=== PATIENT | male | born 1985 ===

== ENCOUNTER 2017-07-05 12:11 | Emergency (ER) | payer MEDICAID, OTHER ==
[2017-07-05 12:32] VITALS: TEMP 97.8; BMI 27.6
[2017-07-05] MEDS ORDERED: Sodium Chloride 0.9% 1,000 ML IV STA (13:22)
--- NOTE | 2017-07-05 13:24 | ED PDOC ---
Arrival/HPI - General Historian: Patient - History of Present Illness Time/Duration: 4-6 hours Symptom Course: Unchanged Quality: Aching, Pressure Severity Level: 10 <Tuan Leonard - Last Filed: 07/05/17 18:11> <Duncan Conklin - Last Filed: 07/05/17 18:51> - General Chief Complaint: Headache Time Seen by Provider: 07/05/17 13:08 - History of Present Illness Narrative History of Present Illness (Text): 07/05/17 18:11 31 yo M with no significant PMH presents to the ER complaining of 10/10 headache since this morning. Patient recently moved to the from [place] 3 days ago. On June 11 (about 3 weeks ago), patient had sudden headache and sudden onset of right sided weakness in the face, arm, and leg. Patient was seen at a hospital in [place] where he was admitted for several days, and worked up for the headache and weakness, including head CT, MRI of the brain with and without contrast, MRA of the head, and labs. Patient brought his hospital records with him, including reports for all radiologic studies; head CT was normal, brain MRI/MRA was significant only for paranasal sinus disease, and labs were grossly unremarkable. Patient was discharged with a prescription for nortryptaline and PRN indomethacin for headache. Patient reports that until this morning, he had not had headache since discharge on 06/21, though he has had persistent right sided weakness, requiring the use of a walker. Patient currently describes the headache and aching and throbbing, diffuse, but worse on the right side, with associated right sided facial pain, worsens with bright lights. He denies confusion, chest pain, shortness of breath, vision changes. No acute worsening in his strength. 07/05/17 18:21 (Tuan Leonard) Past Medical History - Provider Review Nursing Documentation Reviewed: Yes - Travel History Have you recently traveled outside [place] w/in the past 3 mons?: Yes If Yes, travel location?: [place] - Past History Past History: No Previous - Infectious Disease Hx of Infectious Diseases: None - Cardiac Hx ID: Yes - Psychiatric Hx Substance Use: No - Anesthesia Hx Anesthesia: No Hx Anesthesia Reactions: No Hx Malignant Hyperthermia: No <Tuan Leonard - Last Filed: 07/05/17 18:11> Family/Social History - Physician Review Nursing Documentation Reviewed: Yes Family/Social History: Other Smoking Status: Never Smoked Hx Alcohol Use: No Hx Substance Use: No <Jona Leonardram - Last Filed: 07/05/17 18:11> <Ranasinghe,Duncan - Last Filed: 07/05/17 18:51> Narrative Family History (Free Text): 07/05/17 18:22 Migraines in mother (Tuan Leonard) Allergies/Home Meds <AmineVadimkarram - Last Filed: 07/05/17 18:11> <Ranasinghe,Duncan - Last Filed: 07/05/17 18:51> Allergies/Adverse Reactions: Allergies No Known Allergies Allergy (Verified 07/05/17 13:20) Review of Systems - Review of Systems Constitutional: Normal Eyes: Normal ENT: Normal Respiratory: Normal Cardiovascular: Normal Gastrointestinal: Normal Genitourinary Male: Normal Musculoskeletal: Normal Skin: Normal Neurological: Headache, Focal Weakness, Facial Droop. absent: Dizziness, Speech Changes Endocrine: Normal Hemo/Lymphatic: Normal Psychiatric: Normal <AmineJonaram - Last Filed: 07/05/17 18:11> Physical Exam Vital Signs Reviewed: Yes Temperature: Afebrile Blood Pressure: Hypertensive Pulse: Regular Respiratory Rate: Normal Appearance: Positive for: Well-Appearing, Non-Toxic, Comfortable Pain Distress: Mild Mental Status: Positive for: Alert and Oriented X 3 - Systems Exam Head: Present: Atraumatic, Normocephalic Pupils: Present: PERRL, Other (Right ptosis, intermittent) Extroacular Muscles: Present: EOMI Conjunctiva: Present: Normal Mouth: Present: Moist Mucous Membranes Neck: Present: Normal Range of Motion. No: Meningeal Signs Respiratory/Chest: Present: Clear to Auscultation, Good Air Exchange. No: Respiratory Distress, Accessory Muscle Use Cardiovascular: Present: Regular Rate and Rhythm, Normal S1, S2 Abdomen: No: Tenderness, Distention Upper Extremity: Present: Normal Inspection. No: Cyanosis, Edema Lower Extremity: Present: Normal Inspection. No: Edema, CALF TENDERNESS Neurological: Present: GCS=15, Speech Normal, Normal Cerebellar Funct, Norm Deep Tendon Reflexes. No: CN II-XII Intact (Right sided ptosis and decreased excusion of right mouth), Motor Func Grossly Intact (4/5 strength in RUE and RLE ) Skin: Present: Warm, Dry, Normal Color Psychiatric: Present: Alert, Oriented x 3, Normal Insight, Normal Concentration <Tuan Leonard - Last Filed: 07/05/17 18:11> Vital Signs Temp Pulse Resp BP Pulse Ox 07/05/17 17:38 71 18 148/79 98 07/05/17 15:00 76 18 151/86 H 98 07/05/17 13:36 75 18 155/92 H 98 07/05/17 12:26 97.8 F 80 20 159/101 H 99 Medical Decision Making <Tuan Leonard - Last Filed: 07/05/17 18:11> <Duncan Conklin - Last Filed: 07/05/17 18:51> ED Course and Treatment: 07/05/17 18:25 Impression: Headache, right sided weakness Differential Diagnosis included but are not limited to: Migraine, cluster headache, CVA, tension headache Plan: -- Labs -- EKG -- Head CT -- Imitrex -- 1L NS IVF -- Reassess and disposition Prior Visits: None Progress Notes: -- Patient reports mild improvement in headache, no change in neurologic symptoms, now or since prior hospitalization -- Discussed case with Dr. Olivas who recommends no further imaging, treat the headache with IV Magnesium, IV Decadron, and 500mg Depakote; recommends outpatient follow up if headache improves, vs inpatient admission if no improvement -- Ordered IV Mag, IV decadron, and Depakote per Dr. Olivas's recommendation -- Patient reports headache mostly improved; agreeable to be discharged to home for further outpatient workup -- Discussed with patient importance of follow up with primary care provider, suggested [facility] community clinic; follow up with neurologist for continued workup -- Return to the ER for new or worsening concerns (HoracioTuan) 07/05/17 18:25 31 year old male presents to the emergency department for headache. In agreement with resident's note and further details included in the HPI. Came up with treatment and plan of care collaboratively. 07/05/17 18:25 CT of head reviewed by radiologist, shows: FINDINGS: HEMORRHAGE: No intracranial hemorrhage. BRAIN: No mass effect or edema. No atrophy or chronic microvascular ischemic changes. VENTRICLES: Unremarkable. No hydrocephalus. CALVARIUM: Unremarkable. PARANASAL SINUSES: Unremarkable as visualized. No significant inflammatory changes. MASTOID AIR CELLS: Unremarkable as visualized. No inflammatory changes. OTHER FINDINGS: None. IMPRESSION: No acute findings (Ranasinghe,Duncan) - Lab Interpretations Lab Results: 07/05/17 14:05 07/05/17 14:05 Lab Results 07/05/17 14:05: Sodium 141, Chloride 105, Potassium 4.1, Carbon Dioxide 26, Anion Gap 14, BUN 14, Creatinine 0.8, Est GFR ( Amer) > 60, Est GFR (Non- Af Amer) > 60, Random Glucose 79, Calcium 9.5, Total Bilirubin 0.3, AST 35, ALT 83 H, Alkaline Phosphatase 62, Total Protein 7.7, Albumin 4.5, Globulin 3.2, Albumin/Globulin Ratio 1.4 07/05/17 14:05: pO2 57 H, VBG pH 7.32, VBG pCO2 56.0, VBG HCO3 28.9 H, VBG Total CO2 30.6 H, VBG O2 Sat (Calc) 93.1 H, VBG Base Excess 1.6, VBG Potassium 4.1, Sodium 138.0, Chloride 105.0, Glucose 77, Lactate 0.9, FiO2 21.0, Venous Blood Potassium 4.1 07/05/17 14:05: PT 11.6, INR 1.02, APTT 29.1 07/05/17 14:05: WBC 7.0, RBC 4.17, Hgb 12.5 L, Hct 37.1 L, MCV 89.0, MCH 30.0, MCHC 33.7, RDW 13.1, Plt Count 314, MPV 8.7, Gran % 61.6, Lymph % (Auto) 29.4, [place] % (Auto) 7.0 H, Eos % (Auto) 1.9, Baso % (Auto) 0.1, Gran # 4.30, Lymph # ( Auto) 2.1, [place] # (Auto) 0.5, Eos # (Auto) 0.1, Baso # (Auto) 0.01, ESR 44 H - RAD Interpretation Radiology Orders: 07/05/17 13:22 HEAD W/O CONTRAST [CT] Stat - Medication Orders Current Medication Orders: Discontinued Medications Dexamethasone (Decadron Inj) 10 mg IVP STAT STA Stop: 07/05/17 16:27 Last Admin: 07/05/17 16:54 Dose: 10 mg IVP Administration Document 07/05/17 16:54 RD (Rec: 07/05/17 16:54 RD [id number]) Charges for Administration # of IVP Administrations 1 Divalproex Sodium (Depakote Er(Once Daily)) 500 mg PO STAT STA PRN Reason: Protocol Stop: 07/05/17 16:27 Last Admin: 07/05/17 16:54 Dose: 500 mg Sodium Chloride (Sodium Chloride 0.9%) 1,000 mls @ 999 mls/hr IV .Q1H1M STA Stop: 07/05/17 14:22 Last Admin: 07/05/17 14:04 Dose: 999 mls/hr eMAR Start Stop Document 07/05/17 14:04 SF (Rec: 07/05/17 14:05 SF [id number]) Intravenous Solution Start Date 07/05/17 Start Time 14:05 End Date 07/05/17 End time 15:06 Total Infusion Time 61 Magnesium Sulfate 2 gm/ Sodium (Chloride) 104 mls @ 102 mls/hr IVPB ONCE ONE Stop: 07/05/17 17:27 Last Admin: 07/05/17 16:55 Dose: 102 mls/hr eMAR Start Stop Document 07/05/17 16:55 RD (Rec: 07/05/17 16:55 RD [id number]) Intravenous Solution Start Date 07/05/17 Start Time 16:55 End Date 07/05/17 End time 17:57 Total Infusion Time 62 Sumatriptan Succinate (Imitrex Inj) 6 mg SC STAT STA Stop: 07/05/17 13:23 Last Admin: 07/05/17 14:04 Dose: 6 mg Subcutaneous Administrations Document 07/05/17 14:04 SF (Rec: 07/05/17 14:04 SF [id number]) Injection Site MAR Injection Site Right Arm Charges for Administration # of Subcutaneous Administrations 1 <Tuan Leonard - Last Filed: 07/05/17 18:11> - PA / HOSPICE EDUCATOR / Resident Statement / has reviewed & agrees with the documentation as recorded. / has examined the patient and agrees with the treatment plan. - Scribe Statement The provider has reviewed the documentation as recorded by the Scribe <Duncan Conklin - Last Filed: 07/05/17 18:51> - Scribe Statement Shiva Isaac. All medical record entries made by the Scribe were at my direction and personally dictated by me. I have reviewed the chart and agree that the record accurately reflects my personal performance of the history, physical exam, medical decision making, and the department course for this patient. I have also personally directed, reviewed, and agree with the discharge instructions and disposition. (Duncan Conklin) Disposition/Present on Arrival - Present on Arrival Any Indicators Present on Arrival: No History of DVT/PE: No History of Uncontrolled Diabetes: No Urinary Catheter: No History of Decub. Ulcer: No History Surgical Site Infection Following: None - Disposition Have Diagnosis and Disposition been Completed?: Yes Disposition Time: 18:36 Patient Plan: Discharge <Tuan Leonard - Last Filed: 07/05/17 18:11> <Duncan Conklin - Last Filed: 07/05/17 18:51> - Disposition Diagnosis: Headache Disposition: HOME/ ROUTINE Patient Problems: Current Active Problems Problem Status Onset Headache Acute Condition: FAIR Discharge Instructions (ExitCare): Migraine Headache (DC), Headache, Adult (DC) Print Language: JAMAICAN Additional Instructions: -- Follow up with a primary care doctor of your choice, including the [facility] community care clinic within one week -- Follow up with neurologist of your choice, or Dr. Olivas, within one week -- Continue all medications as previously prescribed -- You had elevated blood pressure readings today; you need to follow up with a primary care doctor to recheck in one week, and start treatment for high blood pressure if it remains elevated -- Return to the ER for any new or worsening concerns Referrals: Rich Olivas MD [Staff Provider] - Follow up with primary [facility] at [facility] [Outside] - Follow up with primary Forms: [employer] (Nauruan)
[2017-07-05 13:36] VITALS: RESP 18; O2SAT 98
[2017-07-05 14:11] LABS: BASO # 0.01 K/mm3 (0.0-2.0); BASO % 0.1 % (0.0-3.0); EOS # 0.1 (0.0-0.7); EOS % 1.9 % (1.5-5.0); GRAN # 4.3 (1.4-6.5); GRAN % 61.6 % (50.0-68.0); HEMOGLOBIN 12.5 g/dL (14.0-18.0); LYMPH # 2.1 (1.2-3.4); LYMPH % 29.4 % (22.0-35.0); MEAN CORPUSCULAR HGB CONC 33.7 g/dl (31.0-37.0); MEAN PLATELET VOLUME 8.7 fl (7.0-11.0); MONO # 0.5 (0.1-0.6); RBC 4.17 10^6/uL (3.5-6.1); RED CELL DISTRIBUTION WIDTH 13.1 % (11.5-14.5); VENOUS BLOOD GAS BASE EXCESS 1.6 mmol/L (0.0-2.0); VENOUS BLOOD GAS PO2 57 mm/Hg (30-55); VENOUS BLOOD PH 7.32 (7.32-7.43)
[2017-07-05 14:20] LABS: ALB/GLOB RATIO 1.4 (1.1-1.8); ALBUMIN 4.5 g/dL (3.0-4.8); ALT/SGPT 83 U/L (7-56); AST/SGOT 35 U/L (17-59); BLOOD UREA NITROGEN 14 mg/dL (7-21); CALCIUM 9.5 mg/dL (8.4-10.5); GFR AFRICAN-AMERICAN > 60; GFR NON-AFRICAN AMERICAN > 60
[2017-07-05 14:24] LABS: INR 1.02 (0.93-1.08); PARTIAL THROMBOPLASTIN TIME 29.1 Seconds (25.1-36.5); PROTHROMBIN TIME 11.6 SECONDS (9.4-12.5)
--- NOTE | 2017-07-05 14:42 | CT ---
PROCEDURE: CT HEAD WITHOUT CONTRAST. HISTORY: R sided Headache; 3wks right sided weakness COMPARISON: None available. TECHNIQUE: Axial computed tomography images were obtained through the head/brain without intravenous contrast. Radiation dose: Total exam DLP = 977 mGy-cm. This CT exam was performed using one or more of the following dose reduction techniques: Automated exposure control, adjustment of the mA and/or kV according to patient size, and/or use of iterative reconstruction technique. FINDINGS: HEMORRHAGE: No intracranial hemorrhage. BRAIN: No mass effect or edema. No atrophy or chronic microvascular ischemic changes. VENTRICLES: Unremarkable. No hydrocephalus. CALVARIUM: Unremarkable. PARANASAL SINUSES: Unremarkable as visualized. No significant inflammatory changes. MASTOID AIR CELLS: Unremarkable as visualized. No inflammatory changes. OTHER FINDINGS: None. IMPRESSION: No acute findings
[2017-07-05] MEDS ORDERED: Divalproex 500 mg ER (ONCE DAILY formulation) PO STA (16:26)
[2017-07-05] MEDS ORDERED: Magnesium Sulfate 2 GM in Sodium Chloride 0.9% 100 ML IVPB ONE (16:26)
--- NOTE | 2017-07-05 18:38 | CARD ---
APPROVED REPORT EKG Measurement Heart [id number] <Conclusion> Normal sinus rhythm with sinus arrhythmia Moderate voltage criteria for LVH, may be normal variant Borderline ECG
[2017-07-05 18:54] VITALS: BP 145/74; PULSE 69
== END 2017-07-05 19:01 | disposition home or self-care (01) ==
LOC: ED 12:11
DX: R51 Headache (principal); I25.2 Old myocardial infarction
CPT/HCPCS: 70450; 80053; 82803; 85025; 85610; 85651; 85730; 93005; 96361; 96365; 96372; 96375; 99285; J1100; J3030; J3475; J7040

== ENCOUNTER 2017-07-15 17:33 | Emergency (ER) | payer MEDICAID, OTHER ==
[2017-07-15 17:40] VITALS: BMI 43.3
[2017-07-15 18:11] VITALS: TEMP 98.6
[2017-07-15] MEDS ORDERED: DiphenhydrAMINE 50 mg/ml Inj IVP STA (18:43)
--- NOTE | 2017-07-15 18:47 | ED PDOC ---
Arrival/HPI - General Chief Complaint: Headache Time Seen by Provider: 07/15/17 18:20 Historian: Patient - History of Present Illness Narrative History of Present Illness (Text): 07/15/17 18:38 A 31 year old male, whose past medical history includes hypertension, non- compliant with medications, and LA, who presents to the emergency department complaining of headache today. Patient reports he has been experiencing headaches every other day. Patient states on 06/14/2017 he was seen in [place] for similar complaints and was told headaches were either secondary to migraines, CVA, or uncontrolled hypertension. Patient also reports shortness of breath for 1 hour, but denies any chest pain, or any other complaints at this time. Also, patient reports he was prescribed Nortriptyline 10 mg and Indomethacin 25 mg from [place]. No PMD Symptom Onset: Gradual Symptom Course: Unchanged Activities at Onset: Light Context: Home Past Medical History - Provider Review Nursing Documentation Reviewed: Yes - Past History Past History: No Previous - Infectious Disease Hx of Infectious Diseases: None - Cardiac Hx LA: Yes Hx Hypertension: Yes - Psychiatric Hx Substance Use: No - Anesthesia Hx Anesthesia: No Hx Anesthesia Reactions: No Hx Malignant Hyperthermia: No Family/Social History - Physician Review Nursing Documentation Reviewed: Yes Family/Social History: No Known Family HX Smoking Status: Never Smoked Hx Alcohol Use: No Hx Substance Use: No Allergies/Home Meds Allergies/Adverse Reactions: Allergies No Known Allergies Allergy (Verified 07/05/17 13:20) Review of Systems - Physician Review All systems were reviewed & negative as marked: Yes - Review of Systems Respiratory: SOB Cardiovascular: absent: Chest Pain Genitourinary Male: absent: Dysuria, Frequency, Hematuria, Urinary Output Changes Musculoskeletal: absent: Back Pain, Neck Pain Neurological: Headache. absent: Dizziness Physical Exam Vital Signs Reviewed: Yes Vital Signs Temp Pulse Resp BP Pulse Ox 07/15/17 21:52 73 16 97/65 L 99 07/15/17 17:34 98.6 F 80 18 159/85 H 100 Temperature: Afebrile Blood Pressure: Hypertensive Pulse: Regular Respiratory Rate: Normal Appearance: Positive for: Well-Appearing Pain Distress: None Mental Status: Positive for: Alert and Oriented X 3 - Systems Exam Head: Present: Atraumatic, Normocephalic Pupils: Present: PERRL Extroacular Muscles: Present: Other (right eye ptosis) Conjunctiva: Present: Normal Mouth: Present: Moist Mucous Membranes. No: Normal Tounge (tongue deviated to right) Neck: Present: Normal Range of Motion Respiratory/Chest: Present: Clear to Auscultation, Good Air Exchange. No: Respiratory Distress, Accessory Muscle Use Cardiovascular: Present: Regular Rate and Rhythm, Normal S1, S2. No: Murmurs Abdomen: No: Tenderness, Distention, Peritoneal Signs Upper Extremity: Present: Normal Inspection. No: Cyanosis, Edema Lower Extremity: Present: Edema (+2 pitting edema), Swelling Neurological: Present: Motor Func Grossly Intact (4/5 strength arm and leg) Skin: Present: Warm, Dry, Normal Color. No: Rashes Psychiatric: Present: Alert, Oriented x 3, Normal Insight, Normal Concentration Medical Decision Making ED Course and Treatment: 07/15/17 18:42 Impression: 31 year old male with headache. Differential Diagnosis included but are not limited to: Migraine vs. CVA vs. Uncontrolled Hypertension Plan: -- EKG -- Chest X-ray -- Labs -- Tylenol -- Benadryl -- Reglan -- Reassess and disposition Prior Visits: Patient was last seen here in the emergency department on 2017 for headache. Patient's headache was treated with IV Magnesium, IV Decadron , and 500mg Depakote as recommended by consult Dr. Olivas. Patient was discharged home. Progress Notes: 07/15/17 22:00 Patient states pain is now from 10/10 to 6/10. Ordered for patient Magnesium, Depakote, and steroids. 07/15/17 23:10 CT Head Vrad reading as: streak artifact limits evaluation of the skull base. No evidence of acute intracranial hemorrhage Patient only received Steroids at this time and already had symptoms improve to a 3/10. He feels better and wants to go home. He denies any weakness or lightheadedness. No new neurological symptoms. Patient's last ED visit he presented with the same symptoms and improved as he did this visit. He will follow up with the outpatient clinic and Dr. Olivas, Neurologist. I explained to him and his family the importance of follow up. He will continue nortriptyline and indomethacin as prescribed for his headaches. - Lab Interpretations Lab Results: 07/15/17 19:09 07/15/17 19:09 Lab Results 07/15/17 22:50: Blood Type Confirm A POSITIVE 07/15/17 20:40: Blood Type A POSITIVE, Antibody Screen Negative, BBK History Checked No verified bt 07/15/17 19:09: Hemoglobin A1c 5.8 07/15/17 19:09: Sodium 143, Potassium 4.2, Chloride 105, Carbon Dioxide 29, Anion Gap 14, BUN 11, Creatinine 0.9, Est GFR ( Amer) > 60, Est GFR (Non- Af Amer) > 60, Random Glucose 103, Calcium 8.8, Total Bilirubin 0.4, AST 47, ALT 77 H, Alkaline Phosphatase 48, Troponin I < 0.01, Total Protein 7.2, Albumin 4.1, Globulin 3.2, Albumin/Globulin Ratio 1.3, Triglycerides 309 H, Cholesterol 193, LDL Cholesterol Direct 103, HDL Cholesterol 32 07/15/17 19:09: PT 11.0, INR 0.97, APTT 28.5 07/15/17 19:09: WBC 7.0, RBC 4.11, Hgb 12.4 L, Hct 37.2 L, MCV 90.5, MCH 30.2, MCHC 33.3, RDW 13.1, Plt Count 291, MPV 8.8, Gran % 59.8, Lymph % (Auto) 29.4, [place] % (Auto) 8.7 H, Eos % (Auto) 2.0, Baso % (Auto) 0.1, Gran # 4.19, Lymph # ( Auto) 2.1, [place] # (Auto) 0.6, Eos # (Auto) 0.1, Baso # (Auto) 0.01 I have reviewed the lab results: Yes - RAD Interpretation Radiology Orders: 07/15/17 18:42 CHEST PORTABLE [RAD] Stat 07/15/17 18:54 HEAD W/O CONTRAST [CT] Stat Black [employer] White Printer Operator: Radiologist - Medication Orders Current Medication Orders: Discontinued Medications Acetaminophen (Tylenol 325mg Tab) 650 mg PO STAT STA Stop: 07/15/17 18:44 Last Admin: 07/15/17 19:35 Dose: 650 mg MAR Pain/Vitals Document 07/15/17 19:35 EQ (Rec: 07/15/17 19:35 EQ [id number]) Pain Reassessment Is This A Pain ReAssessment? No Sleep Is patient sleeping during reassessment? No Presence of Pain Presence of Pain Yes Dexamethasone (Decadron Inj) 8 mg IVP STAT STA Stop: 07/15/17 21:11 Last Admin: 07/15/17 22:00 Dose: 8 mg IVP Administration Document 07/15/17 22:00 MS (Rec: 07/15/17 22:08 MS [id number]) Charges for Administration # of IVP Administrations 1 Diphenhydramine HCl (Benadryl) 25 mg IVP STAT STA Stop: 07/15/17 18:44 Last Admin: 07/15/17 19:36 Dose: 25 mg IVP Administration Document 07/15/17 19:36 EQ (Rec: 07/15/17 19:36 EQ [id number]) Charges for Administration # of IVP Administrations 1 Magnesium Sulfate/Dextrose (Magnesium Sulfate 1 Gm/100 Ml D5w) 1 gm in 100 mls @ 100 mls/hr IVPB ONCE STA Stop: 07/15/17 22:09 Last Admin: 07/15/17 22:06 Dose: Valproate Sodium 500 mg/ (Sodium Chloride) 105 mls @ 150 mls/hr IVPB STAT STA Stop: 07/15/17 22:13 Last Admin: 07/15/17 22:06 Dose: Metoclopramide HCl (Reglan) 10 mg IVP STAT STA Stop: 07/15/17 18:44 Last Admin: 07/15/17 19:35 Dose: 10 mg IVP Administration Document 07/15/17 19:35 EQ (Rec: 07/15/17 19:35 EQ [id number]) Charges for Administration # of IVP Administrations 1 - Scribe Statement The provider has reviewed the documentation as recorded by the Ana Preciado Provider Scribe Attestation: All medical record entries made by the Scribyeyo were at my direction and personally dictated by me. I have reviewed the chart and agree that the record accurately reflects my personal performance of the history, physical exam, medical decision making, and the department course for this patient. I have also personally directed, reviewed, and agree with the discharge instructions and disposition. Disposition/Present on Arrival - Present on Arrival Any Indicators Present on Arrival: No History of DVT/PE: No History of Uncontrolled Diabetes: No Urinary Catheter: No History of Decub. Ulcer: No History Surgical Site Infection Following: None - Disposition Have Diagnosis and Disposition been Completed?: Yes Diagnosis: Headache Disposition: HOME/ ROUTINE Disposition Time: 23:13 Patient Plan: Discharge Condition: IMPROVED Discharge Instructions (ExitCare): Migraine Headache (DC) Additional Instructions: Mr Lua, thank you for letting us take care of you today. Your provider was Dr. Irwin. You were treated for Headache. The emergency medical care you received today was directed at your acute symptoms. If you were prescribed any medication , please fill it and take as directed. It may take several days for your symptoms to resolve. Return to the Emergency Department if your symptoms worsen , do not improve, or if you have any other problems. Please contact your doctor or call one of the physicians/clinics you have been referred to that are listed on the Patient Visit Information form that is included in your discharge packet. Bring any paperwork you were given at discharge with you along with any medications you are taking to your follow up visit. Our treatment cannot replace ongoing medical care by a primary care provider (PCP) outside of the emergency department. Thank you for allowing the Care [facility] team to be part of your care today. If you had an X-Ray or CT scan: A Radiologist will review the ED reading if any change in treatment is needed we will contact you. If you had a blood, urine, or wound culture: It will take several days for the results, if any change in treatment is needed we will contact you. If you had an STI test: It will take 48 hours for the results. Please call after 1 week if you have not heard back. Referrals: [facility] at [facility] [Outside] - Follow up with primary Rich Olivas MD [Staff Provider] - Follow up with primary Forms: [employer] (Peruvian), [employer] (Kiswahili), WORK NOTE
[2017-07-15 19:17] LABS: BASO # 0.01 K/mm3 (0.0-2.0); BASO % 0.1 % (0.0-3.0); EOS # 0.1 (0.0-0.7); GRAN # 4.19 (1.4-6.5); GRAN % 59.8 % (50.0-68.0); HEMOGLOBIN 12.4 g/dL (14.0-18.0); LYMPH # 2.1 (1.2-3.4); LYMPH % 29.4 % (22.0-35.0); MEAN CELL VOLUME 90.5 fl (80.0-105.0); MEAN CORPUSCULAR HEMOGLOBIN 30.2 pg (25.0-35.0); MEAN CORPUSCULAR HGB CONC 33.3 g/dl (31.0-37.0); MEAN PLATELET VOLUME 8.8 fl (7.0-11.0); MONO # 0.6 (0.1-0.6); MONO % 8.7 % (1.0-6.0); RBC 4.11 10^6/uL (3.5-6.1); RED CELL DISTRIBUTION WIDTH 13.1 % (11.5-14.5)
[2017-07-15 19:26] LABS: INR 0.97 (0.93-1.08); PARTIAL THROMBOPLASTIN TIME 28.5 Seconds (25.1-36.5)
[2017-07-15 19:47] LABS: ALB/GLOB RATIO 1.3 (1.1-1.8); ALBUMIN 4.1 g/dL (3.0-4.8); ALT/SGPT 77 U/L (7-56); AST/SGOT 47 U/L (17-59); BLOOD UREA NITROGEN 11 mg/dL (7-21); CALCIUM 8.8 mg/dL (8.4-10.5); GFR AFRICAN-AMERICAN > 60; GFR NON-AFRICAN AMERICAN > 60; HDL CHOLESTEROL 32 mg/dL (29-60)
[2017-07-15 19:53] LABS: LDL CHOLESTEROL 103 mg/dL (0-129)
[2017-07-15 19:56] LABS: TROPONIN I < 0.01 ng/mL
[2017-07-15] MEDS ORDERED: Dexamethasone 4 mg/1 ml IVP STA (21:10)
[2017-07-15] MEDS ORDERED: Magnesium Sulfate 1 gm in D5W 1 GM/100 ML BAG IVPB STA (21:10)
[2017-07-15] MEDS ORDERED: Valproate 500 MG in Sodium Chloride 0.9% 100 ML IVPB STA (21:32)
[2017-07-15 22:57] VITALS: BP 97/65; PULSE 73; RESP 16; O2SAT 99
--- NOTE | 2017-07-16 08:12 | RAD ---
HISTORY: Code Stroke COMPARISON: No prior. FINDINGS: LUNGS: Poor inspiration with low lung volumes crowded bronchovascular markings and mild bibasilar atelectasis. PLEURA: No significant pleural effusion identified, no pneumothorax apparent. CARDIOVASCULAR: Normal. OSSEOUS STRUCTURES: No significant abnormalities. VISUALIZED UPPER ABDOMEN: Normal. OTHER FINDINGS: None. IMPRESSION: No active disease.
--- NOTE | 2017-07-16 08:25 | CT ---
PROCEDURE: CT scan abdomen pelvis dated 07/17/2017 HISTORY: Abdominal pain COMPARISON: No prior studies available for comparison TECHNIQUE: Contiguous axial images of the abdomen and pelvis performed without oral or intravenous contrast material. Additional 2D sagittal and coronal reformats generated. Radiation dose: Total exam DLP = This CT exam was performed using one or more of the following dose reduction techniques: Automated exposure control, adjustment of the mA and/or kV according to patient size, and/or use of iterative reconstruction technique. FINDINGS: LOWER THORAX: Lung bases clear. No infiltrate effusion or basilar pneumothorax. LIVER: Liver exhibits relatively normal size measuring bili 17 cm in CC dimension. No obvious hepatic masses or collections seen on this noncontrast study. GALLBLADDER AND BILE DUCTS: Gallbladder is appears incompletely distended possibly due to recent nonfasting state. No evidence of intraluminal gallbladder calculi PANCREAS: The pancreas appears slightly fatty replaced. No obvious pancreatic masses collections or calcification. No significant pancreatic ductal dilatation. SPLEEN: Spleen exhibits normal size and attenuation pattern without mass collection or calcification. ADRENALS: No adrenal lesions are identified KIDNEYS AND URETERS: Kidneys demonstrate relatively symmetric size. No evidence of obstructing nephrolithiasis. Large partially exophytic cyst arising from the upper pole right kidney measuring approximately 5.9 x 5.7 cm. BLADDER: Urinary bladder is incompletely distended which in part accounts for thick-walled appearance. Muscular hypertrophy may contribute. Other intrinsic - invasive wall lesion not excluded REPRODUCTIVE: Prostate gland measures approximately 3.8 cm in transverse dimension. APPENDIX: Normal-appearing appendix best seen on coronal sequence image number [id number]. BOWEL: Evaluation of the bowel is limited due to the lack of oral contrast material. . Stomach is incompletely distended which in part accounts for thick-walled appearance. The visualized loops of small bowel exhibit normal contour and caliber. No evidence acute mechanical small bowel obstruction. . There are scattered colonic diverticula however no radiographic evidence of acute diverticulitis. . There appears to be some mild submucosal fat deposition within the cecum and; rule out chronic sequela of inflammation. Moderate amount of stool is seen within the rectum and distal sigmoid consistent with mild fecal retention. PERITONEUM: Unremarkable. No fluid collection. No free air. . Tiny fat containing umbilical hernia Small bilateral fat containing umbilical hernias are present. LYMPH NODES: Few small nonspecific retroperitoneal lymph nodes are present. VASCULATURE: No evidence of abdominal aortic or iliac artery aneurysm. BONES: Minor multilevel degenerative spondylosis of the lower thoracic and lumbar spine. No acute compression fractures no retropulsed fragments. Vertebral bodies exhibit normal stature. OTHER FINDINGS: None. IMPRESSION: Moderately large right renal cysts as above. Scattered colonic diverticula. No radiographic evidence of acute diverticulitis. . No evidence of acute appendicitis
== END 2017-07-15 21:13 | disposition home or self-care (01) ==
LOC: ED 17:33
DX: R51 Headache (principal); I25.2 Old myocardial infarction; I10 Essential (primary) hypertension; Z91.19 Patient's noncompliance with other medical treatment and regimen
CPT/HCPCS: 70450; 71045; 80053; 80061; 83036; 84484; 85025; 85610; 85730; 86850; 86900; 96374; 96375; 99285; J1100; J1200; J2765

== ENCOUNTER 2018-05-19 17:23 | Emergency (ER) | payer MEDICAID ==
[2018-05-19 17:29] VITALS: BMI 48.0
[2018-05-19 17:52] VITALS: BP 131/81; PULSE 96; RESP 18; TEMP 98.2; O2SAT 97
--- NOTE | 2018-05-19 19:41 | ED PDOC ---
Arrival/HPI - General Chief Complaint: Allergic Reaction Historian: Patient - History of Present Illness Narrative History of Present Illness (Text): 05/19/18 19:42 32-year-old male presents today with pruritic rash to both arms abdomen back and legs that started yesterday after eating [employer] sandwich. Patient denies chest pain or shortness of breath. Denies fevers or chills. Patient denies difficulty breathing or swallowing. He denies sore throat. No vomiting or diarrhea. Patient states he took unknown [id number] medication without improvement in his symptoms. No other complaints Past Medical History - Provider Review Nursing Documentation Reviewed: Yes - Travel History Have you recently traveled outside [place] w/in the past 3 mons?: No - Past History Past History: No Previous - Infectious Disease Hx of Infectious Diseases: None - Cardiac Hx VT: Yes Hx Hypertension: Yes - Neurological Hx Transient Ischemic Attacks (TIA): Yes - Psychiatric Hx Substance Use: No - Anesthesia Hx Anesthesia: No Hx Anesthesia Reactions: No Hx Malignant Hyperthermia: No Family/Social History - Physician Review Nursing Documentation Reviewed: Yes Family/Social History: Unknown Family HX Smoking Status: Never Smoked Hx Alcohol Use: No Hx Substance Use: No Allergies/Home Meds Allergies/Adverse Reactions: Allergies No Known Allergies Allergy (Verified 05/19/18 17:30) Review of Systems - Review of Systems Constitutional: absent: Fatigue, Fevers Respiratory: absent: SOB, Cough Cardiovascular: absent: Chest Pain, Palpitations Gastrointestinal: absent: Abdominal Pain, Nausea, Vomiting Genitourinary Male: absent: Dysuria Musculoskeletal: absent: Arthralgias, Back Pain, Neck Pain Skin: Rash, Pruritis Neurological: absent: Headache, Dizziness Psychiatric: absent: Anxiety, Depression Physical Exam Vital Signs Reviewed: Yes Vital Signs Temp Pulse Resp BP Pulse Ox 05/19/18 17:48 98.2 F 96 H 18 131/81 97 Temperature: Afebrile Blood Pressure: Normal Pulse: Regular Respiratory Rate: Normal Appearance: Positive for: Well-Appearing, Non-Toxic, Comfortable Pain Distress: None Mental Status: Positive for: Alert and Oriented X 3 - Systems Exam Head: Present: Atraumatic Mouth: Present: Moist Mucous Membranes Pharnyx: Present: Normal. No: ERYTHEMA, EXUDATE, TONSILS ENLARGED, Peritonsilar Swelling, Uvular Deviation Neck: Present: Normal Range of Motion Respiratory/Chest: Present: Clear to Auscultation, Good Air Exchange. No: Respiratory Distress, Accessory Muscle Use Cardiovascular: Present: Regular Rate and Rhythm, Normal S1, S2. No: Murmurs Abdomen: No: Tenderness, Distention Upper Extremity: Present: Normal ROM Lower Extremity: Present: Normal ROM Neurological: Present: GCS=15, Speech Normal Skin: Present: Warm, Dry, Rashes (Multiple erythematous raised plaques/wheals noted to the bilateral forearms anterior abdomen low back and legs bilaterally), Normal Color Psychiatric: Present: Alert, Oriented x 3 Medical Decision Making ED Course and Treatment: 05/19/18 19:48 Patient is nontoxic well-appearing in no distress with stable vital signs no angioedema. Lungs are clear to auscultation bilaterally there is no wheezing noted. The airway is patent Benadryl 50 mg po Prednisone 60mg po Pepcid 20 mg po Patient reassessment: After medications patient is feeling better. rash is improved. the lungs are clear to auscultation bilaterally the airway is patent the patient is speaking in full sentences. I advised taking Benadryl every 6 hours as needed for itch.as well as prednisone daily x4 days. Advised patient to follow up with primary care physician within the next 2 days and return if symptoms worsen persist or if new symptoms develop Patient verbalizes understanding of discharge instructions and need for immediate followup. All aspects of this case were discussed the attending of record. Impression: Hives Benadryl every 6 hours as needed for itch Prednisone once daily x4 days Pepcid one tablet daily Follow up with the primary care physician tomorrow Follow up with the technical director within the next 2 days. Return if symptoms worsen persist or if new symptoms develop: Shortness of breath, feeling of throat closing, difficulty speaking or any other concerning symptoms develop Reassessment Condition: Re-examined, Improved - Medication Orders Current Medication Orders: Discontinued Medications Diphenhydramine HCl (Benadryl) 50 mg PO ONCE ONE Stop: 05/19/18 17:42 Last Admin: 05/19/18 17:58 Dose: 50 mg Famotidine (Pepcid) 20 mg PO STAT STA Stop: 05/19/18 17:42 Prednisone (Prednisone Tab) 60 mg PO STAT ONE Stop: 05/19/18 17:42 Last Admin: 05/19/18 17:59 Dose: 60 mg Disposition/Present on Arrival - Present on Arrival Any Indicators Present on Arrival: No History of DVT/PE: No History of Uncontrolled Diabetes: No Urinary Catheter: No History of Decub. Ulcer: No History Surgical Site Infection Following: None - Disposition Have Diagnosis and Disposition been Completed?: Yes Diagnosis: Rash Disposition: HOME/ ROUTINE Disposition Time: 19:33 Patient Plan: Discharge Patient Problems: Current Active Problems Problem Status Onset Rash Acute Condition: GOOD Discharge Instructions (ExitCare): Hives Additional Instructions: Benadryl every 6 hours as needed for itch Prednisone once daily x4 days Pepcid one tablet daily Follow up with the primary care physician tomorrow Follow up with the technical director within the next 2 days. Return if symptoms worsen persist or if new symptoms develop: Shortness of breath, feeling of throat closing, difficulty speaking or any other concerning symptoms develop Prescriptions: DiphenhydrAMINE [Benadryl] 25 mg PO Q6H #20 cap Famotidine [Pepcid] 20 mg PO DAILY #30 tab predniSONE [predniSONE Tab] 3 tab PO DAILY #12 tab Referrals: PCP,NO [Primary Care Provider] - Follow up with primary Tanya Shaw MD [Staff Provider] - Follow up with primary Alysha Finch MD [Medical Doctor] - Follow up with primary [employer] [Outside] - Follow up with primary Forms: [employer] (S[place]i), WORK NOTE
== END 2018-05-19 22:22 | disposition home or self-care (01) ==
LOC: ED 17:23
DX: R21 Rash and other nonspecific skin eruption (principal); I10 Essential (primary) hypertension

== ENCOUNTER 2018-06-18 23:04 | Inpatient (IN) | payer MEDICAID ==
[2018-06-18 23:04] VITALS: BMI 48.0
[2018-06-18] MEDS ORDERED: Sodium Chloride 0.9% 1,000 ML IV STA (23:38)
[2018-06-19 00:08] LABS: BASO # 0.01 K/mm3 (0.0-2.0); BASO % 0.1 % (0.0-3.0); EOS # 0.2 (0.0-0.7); EOS % 1.7 % (1.5-5.0); HEMOGLOBIN 12.4 g/dL (14.0-18.0); LYMPH # 2.7 (1.2-3.4); LYMPH % 28.1 % (22.0-35.0); MEAN CELL VOLUME 92.2 fl (80.0-105.0); MEAN CORPUSCULAR HEMOGLOBIN 30.2 pg (25.0-35.0); MEAN CORPUSCULAR HGB CONC 32.7 g/dl (31.0-37.0); MEAN PLATELET VOLUME 9.1 fl (7.0-11.0); MONO # 0.6 (0.1-0.6); MONO % 6.2 % (1.0-6.0); RBC 4.11 10^6/uL (3.5-6.1); RED CELL DISTRIBUTION WIDTH 13.1 % (11.5-14.5); WHITE BLOOD COUNT 9.6 10^3/uL (4.5-11.0)
[2018-06-19 00:10] LABS: INR 1.04; PARTIAL THROMBOPLASTIN TIME 32.5 Seconds (26.9-38.3); PROTHROMBIN TIME 11.5 SECONDS (9.4-12.5)
[2018-06-19 00:15] LABS: ALB/GLOB RATIO 1.4 (1.1-1.8); ALBUMIN 4.4 g/dL (3.0-4.8); ALT/SGPT 62 U/L (7-56); AST/SGOT 48 U/L (17-59); BLOOD UREA NITROGEN 15 mg/dL (7-21); CALCIUM 9.4 mg/dL (8.4-10.5); GFR NON-AFRICAN AMERICAN > 60
[2018-06-19 00:26] LABS: TROPONIN I < 0.01 ng/mL
[2018-06-19 00:39] LABS: B-TYPE NATRIURETIC PEPTIDE < 11.1 pg/mL (0-450)
--- NOTE | 2018-06-19 00:46 | ED PDOC ---
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 Patient reports he has been experiencing headaches every other day since a TIA which he states he had on 06/14/17. Patient states he bent over and when he got up he had lost vision in his right eye. Patient informs he can see from his right eye now. Patient informs of dizziness as well. Patient informs after incidence at home, he checked his vitals which were a HR @116bpm, and BP of 142/69. Upon questioning, patient does inform of some left sided chest pain. Patient denies any fevers, chills, diaphoresis, abdominal pain, nausea, vomiting, diarrhea, back pain, neck pain, or any other complaint. PMD: Dr Stewart Time/Duration: Prior to Arrival Symptom Onset: Sudden Symptom Course: Unchanged Quality: Pressure Activities at Onset: Light Context: Exertion (Bending over), Home Past Medical History - Provider Review Nursing Documentation Reviewed: Yes - Past History Past History: No Previous - Infectious Disease Hx of Infectious Diseases: None - Cardiac Hx MA: Yes Hx Hypertension: Yes - Neurological Hx Transient Ischemic Attacks (TIA): Yes - Psychiatric Hx Substance Use: No - Anesthesia Hx Anesthesia: No Hx Anesthesia Reactions: No Hx Malignant Hyperthermia: No Family/Social History - Physician Review Nursing Documentation Reviewed: Yes Family/Social History: No Known Family HX Smoking Status: Never Smoked Hx Alcohol Use: No Hx Substance Use: No Allergies/Home Meds Allergies/Adverse Reactions: Allergies No Known Allergies Allergy (Verified 05/19/18 17:30) Home Medications: Home Meds Medication Instructions Recorded Confirmed Aspirin [Aspirin Chewable] 81 mg PO DAILY 06/18/18 06/18/18 Atorvastatin [Lipitor] 10 mg PO HS 06/18/18 06/18/18 Lisinopril [Zestril] 10 mg PO DAILY 06/18/18 06/18/18 Nortriptyline HCl [Pamelor] 10 mg PO DAILY 06/18/18 06/18/18 Review of Systems - Physician Review All systems were reviewed & negative as marked: Yes - Review of Systems Constitutional: absent: Fevers, Night Sweats Cardiovascular: Chest Pain Gastrointestinal: absent: Abdominal Pain, Diarrhea, Nausea, Vomiting Musculoskeletal: absent: Back Pain, Neck Pain Neurological: Headache, Dizziness, Focal Weakness (residual from past cva) Endocrine: absent: Diaphoresis Physical Exam Vital Signs Reviewed: Yes Vital Signs Temp Pulse Resp BP Pulse Ox 06/18/18 23:26 98.9 F 98 H 18 127/83 98 Temperature: Afebrile Blood Pressure: Normal Pulse: Tachycardic Respiratory Rate: Normal Appearance: Positive for: Well-Appearing, Non-Toxic, Comfortable Pain Distress: None Mental Status: Positive for: Alert and Oriented X 3 Finger Stick Blood Glucose: 174 - Systems Exam Head: Present: Atraumatic, Normocephalic Pupils: Present: PERRL Extroacular Muscles: Present: EOMI Conjunctiva: Present: Normal Mouth: Present: Moist Mucous Membranes Neck: Present: Normal Range of Motion Respiratory/Chest: Present: Clear to Auscultation, Good Air Exchange. No: Respiratory Distress, Accessory Muscle Use Cardiovascular: Present: Normal S1, S2, Tachycardic. No: Murmurs Abdomen: Present: Distention. No: Tenderness, Peritoneal Signs Back: Present: Normal Inspection Upper Extremity: Present: Normal Inspection. No: Cyanosis, Edema Lower Extremity: Present: Normal Inspection. No: Edema Neurological: Present: GCS=15, CN II-XII Intact, Speech Normal Skin: Present: Warm, Dry, Normal Color. No: Rashes Psychiatric: Present: Alert, Oriented x 3, Normal Insight, Normal Concentration Medical Decision Making ED Course and Treatment: 06/19/18 00:48 Impression: 32 year old male presents with headache and dizziness. NIHSS: 1 Plan: -- CT Head -- Drug Screen -- EKG -- Toradol -- Reglan -- Urinalysis -- Reassess and disposition Prior Visits: Notes and results from previous visits were reviewed. Progress Notes: 06/19/18 01:18 Labs reviewed with no acute abnormalities noted. CTH pending. 06/19/18 01:48 CTH shows no evidence of intracranial pathology. Discussed findings and plan with Dr. Vincent(house staff) who accepts patient onto hospitalist service. Spoke to resident who will come down to evaluate patient. - Lab Interpretations Lab Results: PT 11.5 SECONDS (9.4-12.5) 06/18/18 23:50 INR 1.04 06/18/18 23:50 APTT 32.5 Seconds (26.9-38.3) 06/18/18 23:50 Troponin I < 0.01 ng/mL 06/18/18 23:50 NT-Pro-B Natriuret Pep < 11.1 pg/mL (0-450) 06/18/18 23:50 Total Bilirubin 0.3 mg/dL (0.2-1.3) 06/18/18 23:50 AST 48 U/L (17-59) 06/18/18 23:50 ALT 62 U/L (7-56) H 06/18/18 23:50 Alkaline Phosphatase 56 U/L (38-126) 06/18/18 23:50 Total Protein 7.6 g/dL (5.8-8.3) 06/18/18 23:50 Albumin 4.4 g/dL (3.0-4.8) 06/18/18 23:50 Globulin 3.2 gm/dL 06/18/18 23:50 Albumin/Globulin Ratio 1.4 (1.1-1.8) 06/18/18 23:50 06/18/18 23:50 06/18/18 23:50 Lab Results 06/18/18 23:50: Sodium 139, Potassium 4.0, Chloride 105, Carbon Dioxide 26, Anion Gap 13, BUN 15, Creatinine 1.0, Est GFR ( Amer) > 60, Est GFR (Non- Af Amer) > 60, Random Glucose 161 H, Calcium 9.4, Total Bilirubin 0.3, AST 48, ALT 62 H, Alkaline Phosphatase 56, Troponin I < 0.01, NT-Pro-B Natriuret Pep < 11.1, Total Protein 7.6, Albumin 4.4, Globulin 3.2, Albumin/Globulin Ratio 1.4 06/18/18 23:50: PT 11.5, INR 1.04, APTT 32.5 06/18/18 23:50: WBC 9.6, RBC 4.11, Hgb 12.4 L, Hct 37.9 L, MCV 92.2, MCH 30.2, MCHC 32.7, RDW 13.1, Plt Count 322, MPV 9.1, Neut % (Auto) 63.9, Lymph % (Auto) 28.1, [place] % (Auto) 6.2 H, Eos % (Auto) 1.7, Baso % (Auto) 0.1, Lymph # (Auto) 2.7, [place] # (Auto) 0.6, Eos # (Auto) 0.2, Baso # (Auto) 0.01, Absolute Neuts (auto) 6.14 I have reviewed the lab results: Yes - RAD Interpretation Narrative RAD Interpretations (Text): 06/19/18 01:31 CT Head Without IV contrast. CLINICAL HISTORY: Dizziness TECHNIQUE: Axial computed tomography images of the head/brain without intravenous contrast. COMPARISON: CT\SD\SR - HEAD W/O CONTRAST - 07/15/2017 07:12 PM EDT FINDINGS: BRAIN: No acute intraparenchymal hemorrhage. No mass lesion. No CT evidence for acute territorial infarct. No midline shift or extra-axial collections. VENTRICLES: No hydrocephalus. ORBITS: The orbits are unremarkable. SINUSES AND MASTOIDS: The paranasal sinuses and mastoid air cells are clear. BONES: No fracture. SOFT TISSUES: Unremarkable. IMPRESSION: No acute intracranial abnormality. Little interval change in comparison with 07/15/2017. Radiology Orders: 06/18/18 23:37 HEAD W/O CONTRAST [CT] Stat Electronic Installer: Radiologist - EKG Interpretation EKG Interpretation (Text): 06/19/18 01:55 Normal sinus rhythm @[address] elevations, No T wave inversions Interpreted by ED Physician: Yes Type: 12 lead EKG - Medication Orders Current Medication Orders: Discontinued Medications Sodium Chloride (Sodium Chloride 0.9%) 1,000 mls @ 999 mls/hr IV .Q1H1M STA Stop: 06/19/18 00:38 Last Admin: 06/18/18 23:57 Dose: 999 mls/hr eMAR Start Stop Document 06/18/18 23:57 AD (Rec: 06/18/18 23:58 AD [id number]) Intravenous Solution Start Date 06/18/18 Start Time 23:58 Ketorolac Tromethamine (Toradol) 30 mg IVP STAT STA Stop: 06/18/18 23:38 Last Admin: 06/18/18 23:58 Dose: 30 mg MAR Pain Assessment Document 06/18/18 23:58 AD (Rec: 06/18/18 23:58 AD [id number]) Pain Reassessment Is this a pain reassessment? No Presence of Pain Presence of Pain Yes Location Pain Location Body Cleaning Specialist Description Intensity of Pain at present 8 Pain Behavior Facial Grimacing IVP Administration Document 06/18/18 23:58 AD (Rec: 06/18/18 23:58 AD [id number]) Charges for Administration # of IVP Administrations 1 Metoclopramide HCl (Reglan) 10 mg IVP STAT STA Stop: 06/18/18 23:38 Last Admin: 06/18/18 23:58 Dose: 10 mg IVP Administration Document 06/18/18 23:58 AD (Rec: 06/18/18 23:58 AD [id number]) Charges for Administration # of IVP Administrations 1 NIHSS Stroke Scale 3 - Date/Time Evaluation Performed Date Performed: 06/19/18 When Was NIHSS Performed: Baseline - How Severe is the Stroke Level of Consciousness: 0=Alert LOC to Questions: 0=Both comments correct LOC to commands: 0=Obeys both correctly Best Gaze: 0=Normal Visual: 0=No visual loss Facial: 0=Normal Motor Arm - Left: 0=No drift Motor Arm - Right: 0=No drift Motor Leg - Left: 0=No drift Motor Leg - Right: 0=No drift Limb Ataxia: 0=Absent Sensory: 1=Mild to moderate loss Best Language: 0=No aphasia Dysarthia: 0=Normal articulation Extinction & Inattention (Neglect): 0=Normal, no object Score: 1 - Scribe Statement The provider has reviewed the documentation as recorded by the Ana Streeter Provider Scribe Attestation: All medical record entries made by the Scribyeyo were at my direction and personally dictated by me. I have reviewed the chart and agree that the record accurately reflects my personal performance of the history, physical exam, medical decision making, and the department course for this patient. I have also personally directed, reviewed, and agree with the discharge instructions and disposition. Disposition/Present on Arrival - Present on Arrival Any Indicators Present on Arrival: No History of DVT/PE: No History of Uncontrolled Diabetes: No Urinary Catheter: No History of Decub. Ulcer: No History Surgical Site Infection Following: None - Disposition Have Diagnosis and Disposition been Completed?: Yes
--- NOTE | 2018-06-19 01:45 | CP.PCM.HP ---
<SengNamitaelizabeth - Last Filed: 06/19/18 02:35> History of Present Illness - History of Present Illness History of Present Illness: PYG1 Medicine History and Physical Exam Note for Dr. Vincent This is a 32-year-old M with PMH of HTN, HLD, non-compliance, "heart attack", and CVA (residual headache, right eye ptosis, and right sided weakness) who presents to [facility] with a cc of dizziness, headache and right eye vision loss. Patient reports he has been experiencing headaches every other day since having a CVA in 2018. Patient states he bent over and when he got up he had lost vision in his right eye. Patient states he can see from his right eye now. Patient states that his dizziness caused him to sprain his ankle, however Patient denies fall. Patient reports that he checked his vitals at home after this incidence and says his vitals were as follows: HR @116bpm, and BP of 142/69. Patient otherwise denies chest pain, shortness of breath, fevers, chills, diaphoresis, abdominal pain, nausea, vomiting, diarrhea, back pain, neck pain, and/or numbness/tingling. Of note, Patient reports history of stroke in 2018, for which he was worked-up in [place]. Patient moved to the [facility] 1 year ago, and denies having any follow-up with a Floor Supervisor and/or a Neurologist. Furthermore, Patient states he had a "heart attack" while living in [place], however Patient states that no procedures were performed. PMH: CVA, HTN, HLD, medication non-compliance. PSH: Patient denies Medications: ASA 81mg po daily Atorvastatin 10mg po hs Lipitor 10mg po daily Nortriptyline 10 mg po daily Social Hx: Patient denies tobacco use, denies ETOH and/or recreational drugs Family Hx: Stroke and [place] in his grandmother PMD: Dr Stewart Present on Admission - Present on Admission Any Indicators Present on Admission: No History of DVT/PE: No History of Uncontrolled Diabetes: No Urinary Catheter: No Decubitus Ulcer Present: No Review of Systems - Review of Systems All systems: reviewed and no additional remarkable complaints except (as per HPI) Past Patient History - Infectious Disease Hx of Infectious Diseases: None - Past Social History Smoking Status: Never Smoked - CARDIAC Hx Heart Attack: Yes Hx Hypertension: Yes - NEUROLOGICAL Hx Transient Ischemic Attacks (TIA): Yes - PSYCHIATRIC Hx Substance Use: No - SURGICAL HISTORY Hx Surgeries: No - ANESTHESIA Hx Anesthesia: No Hx Anesthesia Reactions: No Hx Malignant Hyperthermia: No Meds Allergies/Adverse Reactions: Allergies Allergy/AdvReac Type Severity Reaction Status Date / Time shellfish AdvReac URTICARIA Uncoded 06/19/18 03:33 Physical Exam - Constitutional Appears: Non-toxic, No Acute Distress Additional comments: lethargic - Head Exam Head Exam: ATRAUMATIC, NORMAL INSPECTION, NORMOCEPHALIC - Eye Exam Eye Exam: EOMI, PERRL Pupil Exam: NORMAL ACCOMODATION Additional comments: ptosis right eye - ENT Exam ENT Exam: Mucous Membranes Moist, Normal Exam - Neck Exam Neck exam: Positive for: Normal Inspection - Respiratory Exam Respiratory Exam: Clear to Auscultation Bilateral, NORMAL BREATHING PATTERN. absent: Accessory Muscle Use, Chest Wall Tenderness, Decreased Breath Sounds, Rhonchi, Wheezes - Cardiovascular Exam Cardiovascular Exam: REGULAR RHYTHM, +S1, +S2 - GI/Abdominal Exam GI & Abdominal Exam: Normal Bowel Sounds, Soft. absent: Tenderness - Extremities Exam Extremities exam: Positive for: normal inspection, tenderness (right lateral malleolus ), pedal pulses present - Back Exam Back exam: NORMAL INSPECTION - Neurological Exam Neurological exam: Alert, CN II-XII Intact, Oriented x3 Additional comments: muscle strength R LE: 3/5 L LE: 5/5 R UE: 3/5 L UE: 5/5 facial droop involving right mouth and right eye forehead spared - Psychiatric Exam Psychiatric exam: Normal Affect, Normal Mood - Skin Skin Exam: Dry, Intact, Normal Color, Warm Results - Vital Signs Recent Vital Signs: Last Vital Signs Temp 98.9 F 06/18/18 23:26 Pulse 98 H 06/18/18 23:26 Resp 18 06/18/18 23:26 BP 127/83 06/18/18 23:26 Pulse Ox 98 06/18/18 23:26 - Labs Result Diagrams: 06/18/18 23:50 06/18/18 23:50 Labs: Laboratory Results - last 24 hr 06/18/18 06/18/18 06/18/18 23:50 23:50 23:50 WBC 9.6 RBC 4.11 Hgb 12.4 L Hct 37.9 L MCV 92.2 MCH 30.2 MCHC 32.7 RDW 13.1 Plt Count 322 MPV 9.1 Neut % (Auto) 63.9 Lymph % (Auto) 28.1 Burt % (Auto) 6.2 H Eos % (Auto) 1.7 Baso % (Auto) 0.1 Lymph # (Auto) 2.7 Burt # (Auto) 0.6 Eos # (Auto) 0.2 Baso # (Auto) 0.01 Absolute Neuts (auto) 6.14 PT 11.5 INR 1.04 APTT 32.5 Sodium 139 Potassium 4.0 Chloride 105 Carbon Dioxide 26 Anion Gap 13 BUN 15 Creatinine 1.0 Est GFR ( Amer) > 60 Est GFR (Non-Af Amer) > 60 Random Glucose 161 H Calcium 9.4 Total Bilirubin 0.3 AST 48 ALT 62 H Alkaline Phosphatase 56 Troponin I < 0.01 NT-Pro-B Natriuret Pep < 11.1 Total Protein 7.6 Albumin 4.4 Globulin 3.2 Albumin/Globulin Ratio 1.4 Assessment & Plan - Assessment and Plan (Free Text) Assessment: This is a 32-year-old M with PMH of HTN, HLD, non-compliance, and CVA (residual headache, right eye ptosis, right sided weakness) who presents to [facility] with a cc of dizziness, headache, and right eye vision loss. Dizziness, Headache, & Right Eye Vision Loss in the setting of prior CVA - Neurology Consulted; Dr. Luo - recommendations appreciated - EKG: NSR no ST changes - Vitamin B12 levels - Folate levels - Free T4 levels - TSH levels - HgbA1C - Homocysteine levels - Lipid panel - CMP, Mg, Phos, - CT Head without contrast pending official report - ECHO with bubble study - CTA head & neck - Coagulation studies: * Protein C, Protein S, VWF comprehensive panel, plasminogen, antiphospholipid, lupus anticoag eval, antithrombin III, factor 8, factor 5, cardiolipin AB (IGG, IGM), fibrinogen - ESR levels - CBC - D-dimer - Rapid plasma reagin with reflex - Troponin I Right Ankle Pain - F/U X-ray Hx HTN - Continue home med lipitor 10mg po daily Hx HLD - Continue home med Atorvastatin 10mg po hs PPx - DVT: lovenox 40 SC - GI: no indication at this time Discussed with Dr. Melisa Ellsworth PGY1 <Sabiha Vincent - Last Filed: 06/19/18 04:13> Results - Vital Signs Recent Vital Signs: Last Vital Signs Temp 98.9 F 06/18/18 23:26 Pulse 99 H 06/19/18 02:25 Resp 18 06/19/18 02:25 BP 135/72 06/19/18 02:25 Pulse Ox 100 06/19/18 02:25 - Labs Result Diagrams: 06/18/18 23:50 06/18/18 23:50 Labs: Laboratory Results - last 24 hr 06/18/18 06/18/18 06/18/18 23:50 23:50 23:50 WBC 9.6 RBC 4.11 Hgb 12.4 L Hct 37.9 L MCV 92.2 MCH 30.2 MCHC 32.7 RDW 13.1 Plt Count 322 MPV 9.1 Neut % (Auto) 63.9 Lymph % (Auto) 28.1 Burt % (Auto) 6.2 H Eos % (Auto) 1.7 Baso % (Auto) 0.1 Lymph # (Auto) 2.7 Burt # (Auto) 0.6 Eos # (Auto) 0.2 Baso # (Auto) 0.01 Absolute Neuts (auto) 6.14 PT 11.5 INR 1.04 APTT 32.5 D-Dimer, Quantitative Sodium 139 Potassium 4.0 Chloride 105 Carbon Dioxide 26 Anion Gap 13 BUN 15 Creatinine 1.0 Est GFR ( Amer) > 60 Est GFR (Non-Af Amer) > 60 Random Glucose 161 H Calcium 9.4 Total Bilirubin 0.3 AST 48 ALT 62 H Alkaline Phosphatase 56 Troponin I < 0.01 NT-Pro-B Natriuret Pep < 11.1 Total Protein 7.6 Albumin 4.4 Globulin 3.2 Albumin/Globulin Ratio 1.4 Urine Color Urine Appearance Urine pH Ur Specific [place]une Urine Protein Urine Glucose (UA) Urine Ketones Urine Blood Urine Nitrate Urine Bilirubin Urine Urobilinogen Ur Leukocyte Esterase Urine RBC Urine WBC Ur Epithelial Cells Urine Opiates Screen Urine Methadone Screen Ur Barbiturates Screen Ur Phencyclidine Scrn Ur Amphetamines Screen U Benzodiazepines Scrn U Oth Cocaine Metabols U Cannabinoids Screen 06/19/18 06/19/18 06/19/18 01:41 01:41 03:00 WBC RBC Hgb Hct MCV MCH MCHC RDW Plt Count MPV Neut % (Auto) Lymph % (Auto) Burt % (Auto) Eos % (Auto) Baso % (Auto) Lymph # (Auto) Burt # (Auto) Eos # (Auto) Baso # (Auto) Absolute Neuts (auto) PT INR APTT D-Dimer, Quantitative 215 Sodium Potassium Chloride Carbon Dioxide Anion Gap BUN Creatinine Est GFR ( Amer) Est GFR (Non-Af Amer) Random Glucose Calcium Total Bilirubin AST ALT Alkaline Phosphatase Troponin I NT-Pro-B Natriuret Pep Total Protein Albumin Globulin Albumin/Globulin Ratio Urine Color Yellow Urine Appearance Clear Urine pH 6.0 Ur Specific Bethune >= 1.030 Urine Protein Trace H Urine Glucose (UA) Negative Urine Ketones Negative Urine Blood Negative Urine Nitrate Negative Urine Bilirubin Negative Urine Urobilinogen 0.2 Ur Leukocyte Esterase Negative Urine RBC 0 - 2 Urine WBC 0 - 2 Ur Epithelial Cells 0 - 2 Urine Opiates Screen Negative Urine Methadone Screen Negative Ur Barbiturates Screen Negative Ur Phencyclidine Scrn Negative Ur Amphetamines Screen Negative U Benzodiazepines Scrn Negative U Oth Cocaine Metabols Negative U Cannabinoids Screen Negative Attending/Attestation - Attestation I have personally seen and examined this patient.: Yes I have fully participated in the care of the patient.: Yes I have reviewed all pertinent clinical information: Yes Notes (Text): 06/19/18 04:12 Patient was seen when he was in [facility]- in presence of nurse Anusha who helped interprete. Medical record was reviewed . Agree with history , physical examination, assessment and plan.
[2018-06-19 01:50] LABS: URINE BILIRUBIN NEGATIVE (NEGATIVE); URINE BLOOD NEGATIVE (NEGATIVE); URINE GLUCOSE (UA) NEGATIVE (NEGATIVE); URINE LEUKOCYTE ESTERASE NEGATIVE Leu/uL (NEGATIVE); URINE PROTEIN TRACE mg/dL (<30 mg/dL); URINE UROBILINOGEN 0.2 E.U./dL (<1 E.U./dL)
[2018-06-19 01:51] LABS: URINE APPEARANCE CLEAR (CLEAR); URINE COLOR YELLOW (YELLOW)
[2018-06-19 02:03] LABS: URINE EPITHELIAL CELLS 0 - 2 /hpf (0-5); URINE RBC 0 - 2 /hpf (0-2); URINE WBC 0 - 2 /hpf (0-6)
[2018-06-19 02:30] LABS: BARBITURATES, UR NEGATIVE (NEGATIVE); BENZODIAZEPINES, UR NEGATIVE (NEGATIVE); OPIATES, UR NEGATIVE (NEGATIVE); PHENCYCLIDINE, UR NEGATIVE (NEGATIVE)
[2018-06-19] MEDS ORDERED: Iohexol 350 MG/100 ML VIAL ONE (02:47)
[2018-06-19] MEDS ORDERED: DiphenhydrAMINE 50 mg/ml Inj IVP STA (03:16)
[2018-06-19] MEDS: Sodium Chloride 0.9% 1,000 ML IV SCH (05:34)
[2018-06-19 06:07] LABS: BASO # 0.01 K/mm3 (0.0-2.0); BASO % 0.1 % (0.0-3.0); EOS # 0.1 (0.0-0.7); EOS % 1.8 % (1.5-5.0); HEMOGLOBIN 12.1 g/dL (14.0-18.0); LYMPH # 2.6 (1.2-3.4); LYMPH % 36.2 % (22.0-35.0); MEAN CELL VOLUME 92.8 fl (80.0-105.0); MEAN CORPUSCULAR HGB CONC 32.3 g/dl (31.0-37.0); MEAN PLATELET VOLUME 9.1 fl (7.0-11.0); MONO # 0.6 (0.1-0.6); MONO % 8.1 % (1.0-6.0); RBC 4.04 10^6/uL (3.5-6.1); RED CELL DISTRIBUTION WIDTH 13.2 % (11.5-14.5); WHITE BLOOD COUNT 7.2 10^3/uL (4.5-11.0)
[2018-06-19 06:40] LABS: LDL CHOLESTEROL 98 mg/dL (0-129)
[2018-06-19 06:41] LABS: TROPONIN I < 0.01 ng/mL
[2018-06-19 06:45] LABS: FREE T4 0.88 ng/dL (0.78-2.19)
[2018-06-19 07:23] LABS: ALB/GLOB RATIO 1.4 (1.1-1.8); ALBUMIN 4.1 g/dL (3.0-4.8); ALT/SGPT 61 U/L (7-56); AST/SGOT 38 U/L (17-59); BLOOD UREA NITROGEN 17 mg/dL (7-21); CALCIUM 8.8 mg/dL (8.4-10.5); GFR NON-AFRICAN AMERICAN > 60; HDL CHOLESTEROL 29 mg/dL (29-60)
--- NOTE | 2018-06-19 08:14 | CT ---
Date of service: 06/19/2018 PROCEDURE: CT HEAD WITHOUT CONTRAST. HISTORY: dizziness COMPARISON: None available. TECHNIQUE: Axial computed tomography images were obtained through the head/brain without intravenous contrast. Radiation dose: Total exam DLP = 1004.72 mGy-cm. This CT exam was performed using one or more of the following dose reduction techniques: Automated exposure control, adjustment of the mA and/or kV according to patient size, and/or use of iterative reconstruction technique. FINDINGS: HEMORRHAGE: No intracranial hemorrhage. BRAIN: Normal carrero-white matter differentiation and density are appreciated throughout the cerebrum and cerebellum with the brainstem appearing unremarkable as well. There is no mass effect. There is no suspicious extra-axial fluid collection and the midline brain anatomy appears diffusely unremarkable. VENTRICLES: Unremarkable. No hydrocephalus. CALVARIUM: Unremarkable. PARANASAL SINUSES: Unremarkable as visualized. No significant inflammatory changes. MASTOID AIR CELLS: Unremarkable as visualized. No inflammatory changes. OTHER FINDINGS: None. IMPRESSION: Unremarkable, stable unenhanced CT of the Head. Concordant preliminary report from [facility], 06/19/2018, 1:23 a.m..
[2018-06-19] MEDS: Enoxaparin 40 mg Syringe SC SCH (09:12)
--- NOTE | 2018-06-19 09:32 | CT ---
Date of service: 06/19/2018 PROCEDURE: CT Angiography of the Brain and Neck. HISTORY: possible new stroke COMPARISON: None available. TECHNIQUE: CT angiography of the head and neck was performed following intravenous contrast administration. Coronal and sagittal maximum intensity projection reformatted images were generated. There is a prior history of seafood allergy with patient given premedication of Benadryl (dose not listed) as per referring physician's. Contrast Dose: Omnipaque 350, 150 cc Radiation dose: Total exam DLP = 749.89 mGy-cm. This CT exam was performed using one or more of the following dose reduction techniques: Automated exposure control, adjustment of the mA and/or kV according to patient size, and/or use of iterative reconstruction technique. FINDINGS: INTERNAL CEREBRAL ARTERIES: Unremarkable. The skull base, petrous, cavernous and supraclinoid segments are bilaterally widely patent. ANTERIOR CEREBRAL ARTERIES: Unremarkable. A1 and A2 segments are widely patent. Smaller distal branches unremarkable, as visualized. MIDDLE CEREBRAL ARTERIES: Unremarkable. M1 and M2 segments are widely patent. Perisylvian branches grossly symmetric. POSTERIOR CIRCULATION: Basilar Artery: Unremarkable. Distal Vertebral Arteries: Left dominant vertebrobasilar circulation. Posterior Cerebral Arteries: Unremarkable. Posterior Inferior Cerebellar Arteries: Unremarkable. NECK CTA: Aortic Arch: Normal three vessel arch identified. Common Carotid arteries: Evaluation of the bilateral common carotid arteries is compromised by tremendous artifacts from the patient's shoulders due to obese body habitus and inability of patient to raise his arms above the shoulders as well. The bilateral definitive common carotid appear widely patent from their origins to their bifurcations with no significant stenosis appreciated. Evaluation for dissection below the level of clavicles is compromised. None is seen cephalad to the level of clavicles. Internal Carotid arteries: No significant stenosis is appreciated throughout the cervical internal carotid artery segments bilaterally and there is no evidence of dissection either. External Carotid arteries: Appear unremarkable bilaterally. Vertebral arteries: From body habitus and inability of the patient adequately position his arms generates artifacts through the cervical bilateral vertebral arteries once again with the mid to lower segments felt to be patent but poorly characterized otherwise. Generally, no high-grade stenosis is suspected.. ANEURYSM/ VASCULAR MALFORMATIONS: None. OTHER FINDINGS: None. IMPRESSION: No definite large vessel occlusion in the intracranial arterial circulation. No aneurysm or AVM identified. Limitation on imaging are caused by body habitus and inability of the patient to raise arms for the neck CTA portion of the examination. Bilateral common carotid and vertebral arteries are felt to be patent without moderate or prominent stenosis. Evaluation for dissection and limited stenoses is limited by excessive beam hardening artifacts. Preliminary report provided by [facility], 06/19/2018, 5:23 a.m..
--- NOTE | 2018-06-19 09:42 | CARD ---
APPROVED REPORT Date of service: 06/18/2018 EKG Measurement Heart [id number] <Conclusion> Normal sinus rhythm Minimal voltage criteria for LVH, may be normal variant Borderline ECG
--- NOTE | 2018-06-19 11:31 | RAD ---
Date of service: 06/19/2018 PROCEDURE: Right Ankle Radiographs. HISTORY: pain s/p sprained ankle COMPARISON: None available. TECHNIQUE: 3 views obtained. FINDINGS: BONES: Normal. No fracture. JOINTS: Normal. No osteoarthritis. Ankle mortise maintained. Talar dome intact SOFT TISSUES: Normal. OTHER FINDINGS: None. IMPRESSION: Normal right ankle radiographs.
--- NOTE | 2018-06-19 12:08 | CP.PCM.CON ---
<MatAndrew - Last Filed: 06/19/18 22:44> History of Present Illness - History of Present Illness History of Present Illness: Neuro consult note Mat PGY - 2 Reason for consult R sided vision loss; dizziness 32 M pertinent MHx of HTN, HLD, non-compliance, "heart attack", and CVA (residual headache, right eye ptosis, and right sided weakness) presented on 06/19/18 with dizziness, headache and right eye vision loss. Patient reports persistent HYATT since CVA in 2018. Patient states his vision loss has resolved now, but still admits to headache. Denies any palpitations or loss of consciousness; denies nausea/vomiting/diarrhea. ROS: 12 point ROS obtained and negative except as per HPI PSH: Patient denies PMH: CVA, HTN, HLD, medication non-compliance. Allergies: Shellfish Social Hx: Patient denies tobacco use, denies ETOH and/or recreational drugs Home Meds: Reviewed, as per MAR Family Hx: Stroke and [place] in his grandmother Past Patient History - Infectious Disease Hx of Infectious Diseases: None - Past Social History Smoking Status: Never Smoked - CARDIAC Hx Heart Attack: Yes Hx Hypertension: Yes - NEUROLOGICAL Hx Transient Ischemic Attacks (TIA): Yes - MUSCULOSKELETAL/RHEUMATOLOGICAL Hx Falls: No - PSYCHIATRIC Hx Substance Use: No - SURGICAL HISTORY Hx Surgeries: No - ANESTHESIA Hx Anesthesia: No Hx Anesthesia Reactions: No Hx Malignant Hyperthermia: No Meds Allergies/Adverse Reactions: Allergies Allergy/AdvReac Type Severity Reaction Status Date / Time shellfish AdvReac URTICARIA Uncoded 06/19/18 03:33 - Medications Medications: Current Medications Aspirin (Aspirin Chewable) 81 mg PO DAILY [facility] Last Admin: 06/19/18 09:12 Dose: 81 mg Atorvastatin Calcium (Lipitor) 10 mg PO HS [facility] Clopidogrel Bisulfate (Plavix) 75 mg PO STAT STA Stop: 06/19/18 12:07 Clopidogrel Bisulfate (Plavix) 75 mg PO DAILY [facility] Enoxaparin Sodium (Lovenox) 40 mg SC DAILY [facility]; Protocol Last Admin: 06/19/18 09:12 Dose: 40 mg Sodium Chloride (Sodium Chloride 0.9%) 1,000 mls @ 100 mls/hr IV .Q10H [facility] Last Admin: 06/19/18 05:34 Dose: 100 mls/hr Lisinopril (Zestril) 10 mg PO DAILY [facility] Last Admin: 06/19/18 09:12 Dose: 10 mg Physical Exam - Constitutional Appears: Non-toxic Additional comments: morbidly obese; seems to have poor insight. - Head Exam Head Exam: ATRAUMATIC, NORMAL INSPECTION, NORMOCEPHALIC - Eye Exam Eye Exam: EOMI, Normal appearance, PERRL Pupil Exam: NORMAL ACCOMODATION, PERRL - ENT Exam ENT Exam: Mucous Membranes Moist, Normal Exam - Neck Exam Neck exam: Positive for: Normal Inspection - Respiratory Exam Respiratory Exam: Clear to Auscultation Bilateral, NORMAL BREATHING PATTERN - Cardiovascular Exam Cardiovascular Exam: REGULAR RHYTHM - GI/Abdominal Exam GI & Abdominal Exam: Normal Bowel Sounds, Soft. absent: Tenderness - Extremities Exam Extremities exam: Positive for: normal inspection - Back Exam Back exam: NORMAL INSPECTION - Neurological Exam Neurological exam: Alert, CN II-XII Intact, Normal Gait, Oriented x3, Reflexes Normal Additional comments: Mental status: The patient is alert, attentive, and oriented. Speech is clear and fluent with good repetition, comprehension, and naming. Cranial nerves: CN II - : Intact CN VII: Face is symmetric with normal eye closure and smile. CN VIII: Hearing is normal to rubbing fingers CN IX, X: Palate elevates symmetrically. Phonation is normal. CN XI: Head turning and shoulder shrug are intact CN XII: Tongue is midline with normal movements and no atrophy. Motor: There is no pronator drift of out-stretched arms. Muscle bulk and tone are normal. Muscle strength: noted right sided 4/5 strength, but significant weakness as compared to left Reflexes: 2+ b/l UE and LE Sensory: Light touch, pinprick, position sense, and vibration sense are intact in fingers and toes on left, but diminished on R Coordination: Rapid alternating movements and fine finger movements are intact. There is no dysmetria on [id number] and [id number]. There are no abnormal or extraneous movements. Romberg is absent. Gait/Stance: Posture is normal. Gait is steady with normal steps, base, arm swing, and turning. Heel and toe walking are normal. Tandem gait is normal when the patient closes one of her eyes. - Psychiatric Exam Psychiatric exam: Normal Affect, Normal Mood - Skin Skin Exam: Dry, Intact, Normal Color, Warm Results - Vital Signs Recent Vital Signs: Last Vital Signs Temp 97.8 F 06/19/18 08:02 Pulse 81 06/19/18 09:12 Resp 20 06/19/18 08:02 BP 112/69 06/19/18 09:12 Pulse Ox 97 06/19/18 08:02 - Labs Result Diagrams: 06/19/18 05:30 06/19/18 05:30 Labs: Laboratory Results - last 24 hr 06/18/18 06/18/18 06/18/18 23:50 23:50 23:50 WBC 9.6 RBC 4.11 Hgb 12.4 L Hct 37.9 L MCV 92.2 MCH 30.2 MCHC 32.7 RDW 13.1 Plt Count 322 MPV 9.1 Neut % (Auto) 63.9 Lymph % (Auto) 28.1 [place] % (Auto) 6.2 H Eos % (Auto) 1.7 Baso % (Auto) 0.1 Lymph # (Auto) 2.7 [place] # (Auto) 0.6 Eos # (Auto) 0.2 Baso # (Auto) 0.01 Absolute Neuts (auto) 6.14 ESR PT 11.5 INR 1.04 APTT 32.5 Fibrinogen D-Dimer, Quantitative Sodium 139 Potassium 4.0 Chloride 105 Carbon Dioxide 26 Anion Gap 13 BUN 15 Creatinine 1.0 Est GFR ( Amer) > 60 Est GFR (Non-Af Amer) > 60 Random Glucose 161 H Calcium 9.4 Phosphorus Magnesium Total Bilirubin 0.3 AST 48 ALT 62 H Alkaline Phosphatase 56 Troponin I < 0.01 NT-Pro-B Natriuret Pep < 11.1 Total Protein 7.6 Albumin 4.4 Globulin 3.2 Albumin/Globulin Ratio 1.4 Triglycerides Cholesterol LDL Cholesterol Direct HDL Cholesterol Free T4 TSH 3rd Generation Urine Color Urine Appearance Urine pH Ur Specific [place] Urine Protein Urine Glucose (UA) Urine Ketones Urine Blood Urine Nitrate Urine Bilirubin Urine Urobilinogen Ur Leukocyte Esterase Urine RBC Urine WBC Ur Epithelial Cells Urine Opiates Screen Urine Methadone Screen Ur Barbiturates Screen Ur Phencyclidine Scrn Ur Amphetamines Screen U Benzodiazepines Scrn U Oth Cocaine Metabols U Cannabinoids Screen 06/19/18 06/19/18 06/19/18 01:41 01:41 03:00 WBC RBC Hgb Hct MCV MCH MCHC RDW Plt Count MPV Neut % (Auto) Lymph % (Auto) [place] % (Auto) Eos % (Auto) Baso % (Auto) Lymph # (Auto) [place] # (Auto) Eos # (Auto) Baso # (Auto) Absolute Neuts (auto) ESR PT INR APTT Fibrinogen D-Dimer, Quantitative 215 Sodium Potassium Chloride Carbon Dioxide Anion Gap BUN Creatinine Est GFR ( Amer) Est GFR (Non-Af Amer) Random Glucose Calcium Phosphorus Magnesium Total Bilirubin AST ALT Alkaline Phosphatase Troponin I NT-Pro-B Natriuret Pep Total Protein Albumin Globulin Albumin/Globulin Ratio Triglycerides Cholesterol LDL Cholesterol Direct HDL Cholesterol Free T4 TSH 3rd Generation Urine Color Yellow Urine Appearance Clear Urine pH 6.0 Ur Specific [place] >= 1.030 Urine Protein Trace H Urine Glucose (UA) Negative Urine Ketones Negative Urine Blood Negative Urine Nitrate Negative Urine Bilirubin Negative Urine Urobilinogen 0.2 Ur Leukocyte Esterase Negative Urine RBC 0 - 2 Urine WBC 0 - 2 Ur Epithelial Cells 0 - 2 Urine Opiates Screen Negative Urine Methadone Screen Negative Ur Barbiturates Screen Negative Ur Phencyclidine Scrn Negative Ur Amphetamines Screen Negative U Benzodiazepines Scrn Negative U Oth Cocaine Metabols Negative U Cannabinoids Screen Negative 06/19/18 06/19/18 06/19/18 05:30 05:30 05:30 WBC 7.2 D RBC 4.04 Hgb 12.1 L Hct 37.5 L MCV 92.8 MCH 30.0 MCHC 32.3 RDW 13.2 Plt Count 303 MPV 9.1 Neut % (Auto) 53.8 Lymph % (Auto) 36.2 H [place] % (Auto) 8.1 H Eos % (Auto) 1.8 Baso % (Auto) 0.1 Lymph # (Auto) 2.6 [place] # (Auto) 0.6 Eos # (Auto) 0.1 Baso # (Auto) 0.01 Absolute Neuts (auto) 3.87 ESR 20 H PT INR APTT Fibrinogen D-Dimer, Quantitative Sodium 139 Potassium 4.1 Chloride 108 H Carbon Dioxide 23 Anion Gap 12 BUN 17 Creatinine 1.0 Est GFR ( Amer) > 60 Est GFR (Non-Af Amer) > 60 Random Glucose 103 Calcium 8.8 Phosphorus 4.6 H Magnesium 1.9 Total Bilirubin 0.2 AST 38 ALT 61 H Alkaline Phosphatase 56 Troponin I < 0.01 NT-Pro-B Natriuret Pep Total Protein 7.0 Albumin 4.1 Globulin 2.9 Albumin/Globulin Ratio 1.4 Triglycerides 168 H Cholesterol 152 LDL Cholesterol Direct 98 HDL Cholesterol 29 Free T4 0.88 TSH 3rd Generation 6.75 H Urine Color Urine Appearance Urine pH Ur Specific [place] Urine Protein Urine Glucose (UA) Urine Ketones Urine Blood Urine Nitrate Urine Bilirubin Urine Urobilinogen Ur Leukocyte Esterase Urine RBC Urine WBC Ur Epithelial Cells Urine Opiates Screen Urine Methadone Screen Ur Barbiturates Screen Ur Phencyclidine Scrn Ur Amphetamines Screen U Benzodiazepines Scrn U Oth Cocaine Metabols U Cannabinoids Screen 06/19/18 05:30 WBC RBC Hgb Hct MCV MCH MCHC RDW Plt Count MPV Neut % (Auto) Lymph % (Auto) [place] % (Auto) Eos % (Auto) Baso % (Auto) Lymph # (Auto) [place] # (Auto) Eos # (Auto) Baso # (Auto) Absolute Neuts (auto) ESR PT INR APTT Fibrinogen 356 D-Dimer, Quantitative Sodium Potassium Chloride Carbon Dioxide Anion Gap BUN Creatinine Est GFR ( Amer) Est GFR (Non-Af Amer) Random Glucose Calcium Phosphorus Magnesium Total Bilirubin AST ALT Alkaline Phosphatase Troponin I NT-Pro-B Natriuret Pep Total Protein Albumin Globulin Albumin/Globulin Ratio Triglycerides Cholesterol LDL Cholesterol Direct HDL Cholesterol Free T4 TSH 3rd Generation Urine Color Urine Appearance Urine pH Ur Specific [place] Urine Protein Urine Glucose (UA) Urine Ketones Urine Blood Urine Nitrate Urine Bilirubin Urine Urobilinogen Ur Leukocyte Esterase Urine RBC Urine WBC Ur Epithelial Cells Urine Opiates Screen Urine Methadone Screen Ur Barbiturates Screen Ur Phencyclidine Scrn Ur Amphetamines Screen U Benzodiazepines Scrn U Oth Cocaine Metabols U Cannabinoids Screen Assessment & Plan - Assessment and Plan (Free Text) Assessment: 32 M pertinent MHx of HTN, HLD, non-compliance, "heart attack", and CVA (residual headache, right eye ptosis, and right sided weakness) presented on 06/19/18 with dizziness, headache and right eye vision loss. R vision loss has resolved; R sided weakness is residual and remains. No longer feels dizzy. Head and neck CTA and Head CT are negative for acute process. Chart review of previous visits reveals negative CT Head from those visits as well. Plan Acute CVA VS TIA - ASA/Plavix/Lipitor - Admit to remote tele - Achieve adequate blood pressure control - PT/OT - Obtain MRI Head <Carlos Da Silva - Last Filed: 06/21/18 18:34> Meds - Medications Medications: Current Medications Acetaminophen (Tylenol 325mg Tab) 650 mg PO Q6H PRN PRN Reason: Headache Last Admin: 06/21/18 14:21 Dose: 650 mg Aspirin (Aspirin Chewable) 81 mg PO DAILY [facility] Last Admin: 06/21/18 09:38 Dose: 81 mg Atorvastatin Calcium (Lipitor) 40 mg PO HS [facility] Last Admin: 06/20/18 21:59 Dose: 40 mg Clopidogrel Bisulfate (Plavix) 75 mg PO DAILY [facility] Last Admin: 06/21/18 09:38 Dose: 75 mg Enoxaparin Sodium (Lovenox) 40 mg SC DAILY [facility]; Protocol Last Admin: 06/21/18 09:38 Dose: 40 mg Sodium Chloride (Sodium Chloride 0.9%) 1,000 mls @ 100 mls/hr IV .Q10H [facility] Last Admin: 06/21/18 17:25 Dose: Not Given Lisinopril (Zestril) 10 mg PO DAILY [facility] Last Admin: 06/21/18 09:37 Dose: 10 mg Results - Vital Signs Recent Vital Signs: Last Vital Signs Temp 99.4 F 06/21/18 18:00 Pulse 87 06/21/18 18:00 Resp 20 06/21/18 18:00 BP 130/70 06/21/18 18:00 Pulse Ox 99 06/21/18 06:00 - Labs Result Diagrams: 06/21/18 06:30 06/21/18 06:30 Labs: Laboratory Results - last 24 hr 06/19/18 06/21/18 06/21/18 05:00 06:30 06:30 WBC 6.3 RBC 4.17 Hgb 12.5 L Hct 38.2 L MCV 91.6 MCH 30.0 MCHC 32.7 RDW 12.9 Plt Count 297 MPV 9.1 Neut % (Auto) 52.8 Lymph % (Auto) 39.0 H [place] % (Auto) 5.8 Eos % (Auto) 2.2 Baso % (Auto) 0.2 Lymph # (Auto) 2.5 [place] # (Auto) 0.4 Eos # (Auto) 0.1 Baso # (Auto) 0.01 Absolute Neuts (auto) 3.34 Sodium 140 Potassium 4.0 Chloride 107 Carbon Dioxide 24 Anion Gap 13 BUN 12 Creatinine 0.8 Est GFR ( Amer) > 60 Est GFR (Non-Af Amer) > 60 Random Glucose 92 Calcium 8.9 Magnesium 2.1 Total Bilirubin 0.3 AST 29 ALT 51 Alkaline Phosphatase 51 Total Protein 6.8 Albumin 3.8 Globulin 3.0 Albumin/Globulin Ratio 1.3 Anti-Cardiolipin IgG Ab <14 Assessment & Plan - Assessment and Plan (Free Text) Plan: All medical record entries made by the Resident were at my direction and personally dictated by me. I have reviewed the chart and agree that the record accurately reflects my personal performance of the history, physical exam, medical decision making, and the department course for this patient. I have also personally directed, reviewed, and agree with the discharge instructions and disposition MR Lua is a 32 yr old male with a prior stroke who is here with similar sy mptoms to prior event. We will do stroke workup including MRI BRain without contrast. DR. da silva Neurology
--- NOTE | 2018-06-19 14:05 | CARD ---
APPROVED REPORT Date of service: 06/19/2018 EXAM: Two-dimensional and M-mode echocardiogram with Doppler and color Doppler. INDICATION CVA/TIA BUBBLE STUDY 2D DIMENSIONS Left Atrium (2D)3.5 (1.6-4.0cm)IVSd1.3 (0.7-1.1cm) LVDd4.5 (3.9-5.9cm)PWd1.2 (0.7-1.1cm) LVDs3.0 (2.5-4.0cm)FS (%) 34.7 % LVEF (%)64.0 (>50%) M-Mode DIMENSIONS Aortic Root2.90 (2.2-3.7cm)Aortic Cusp Exc.2.20 (1.5-2.0cm) Aortic Valve AoV Peak Rgfifcfn644.0cm/Henrique Peak GR.9mmHg Mitral Valve MV E Htjqcpfr94.0cm/sMV A Uohhojdn97.4cm/sE/A ratio1.5 TDI E/Lateral E'0.0E/Medial E'0.0 Tricuspid Valve TR Peak [id number]/sRAP [id number] Peak Gr.12mmHg [id number] LEFT VENTRICLE The left ventricle is normal size. There is mild concentric left ventricular hypertrophy. The left ventricular function is normal. The left ventricular ejection fraction is within the normal range. There is normal LV segmental wall motion. RIGHT VENTRICLE The right ventricle is normal size. The right ventricular systolic function is normal. ATRIA The left atrium size is normal. The right atrium size is normal. The interatrial septum is intact with no evidence for an atrial septal defect. AORTIC VALVE The aortic valve is normal in structure. No aortic regurgitation is present. There is no aortic valvular stenosis. MITRAL VALVE The mitral valve is normal in structure. Mitral regurgitation is trace. TRICUSPID VALVE The tricuspid valve is normal in structure. There is trace tricuspid regurgitation. PULMONIC VALVE The pulmonary valve is normal in structure. GREAT VESSELS The aortic root is normal in size. The IVC is normal in size and collapses >50% with inspiration. PERICARDIAL EFFUSION There is no pleural effusion. There is no pericardial effusion. <Conclusion> Normal chamber size. Mild concentric LVH. Normal LV systolic function. Trace mitral and tricuspid regurgitation. Negative bubble study.
[2018-06-19 14:38] LABS: FOLATE 9.4 ng/mL
[2018-06-20] MEDS: Sodium Chloride 0.9% 1,000 ML IV SCH ×2 (02:19→23:56)
[2018-06-20 07:20] LABS: BASO # 0.01 K/mm3 (0.0-2.0); BASO % 0.2 % (0.0-3.0); EOS # 0.1 (0.0-0.7); EOS % 2.3 % (1.5-5.0); HEMOGLOBIN 11.8 g/dL (14.0-18.0); LYMPH # 2.2 (1.2-3.4); LYMPH % 36.1 % (22.0-35.0); MEAN CELL VOLUME 92.8 fl (80.0-105.0); MEAN CORPUSCULAR HEMOGLOBIN 29.5 pg (25.0-35.0); MEAN CORPUSCULAR HGB CONC 31.8 g/dl (31.0-37.0); MEAN PLATELET VOLUME 8.8 fl (7.0-11.0); MONO # 0.4 (0.1-0.6); MONO % 6.7 % (1.0-6.0); RED CELL DISTRIBUTION WIDTH 13.2 % (11.5-14.5)
[2018-06-20 07:47] LABS: ALB/GLOB RATIO 1.3 (1.1-1.8); ALBUMIN 3.8 g/dL (3.0-4.8); ALT/SGPT 54 U/L (7-56); AST/SGOT 32 U/L (17-59); BLOOD UREA NITROGEN 12 mg/dL (7-21); CALCIUM 8.7 mg/dL (8.4-10.5); GFR NON-AFRICAN AMERICAN > 60
[2018-06-20 08:21] LABS: CARDIOLIPIN AB (IGA) <11 APL (<=11)
[2018-06-20] MEDS: Enoxaparin 40 mg Syringe SC SCH (09:05)
--- NOTE | 2018-06-20 09:44 | MRI ---
Date of service: 06/19/2018 PROCEDURE: MRI BRAIN WITHOUT CONTRAST HISTORY: Possible CVA COMPARISON: None available. TECHNIQUE: Multiplanar, multisequence MR images of the brain were obtained without intravenous contrast enhancement. FINDINGS: HEMORRHAGE: None DWI: No evidence of an acute or early subacute infarction. BRAIN PARENCHYMA: No mass effect or edema. No atrophy or chronic microvascular ischemic changes. VENTRICLES: Unremarkable. No hydrocephalus. CRANIUM: Unremarkable. ORBITS: Grossly unremarkable. PARANASAL SINUSES/MASTOIDS: Clear VASCULAR SYSTEM: Skull base flow voids intact. OTHER FINDINGS: None. IMPRESSION: Unremarkable non contrast enhanced MRI of the brain.
--- NOTE | 2018-06-20 16:54 | CP.PCM.PN ---
<Michael Henderson - Last Filed: 06/20/18 16:57> Subjective - Date & Time of Evaluation Date of Evaluation: 06/20/18 Time of Evaluation: 16:51 - Subjective Subjective: PGY-1 Medicine progress note for Dr. Burnette Patient seen and examined at bedside. No acute events overnight. Family members are at bedside. Patient is complaining of a headache and right ankle pain. He otherwise denies fever, chills, shortness of breath, chest pain, abdominal pain, nausea, vomiting, or diarrhea. Objective - Vital Signs/Intake and Output Vital Signs (last 24 hours): Temp Pulse Resp BP Pulse Ox 98 F 87 20 126/74 97 06/20/18 16:08 06/20/18 16:08 06/20/18 16:08 06/20/18 16:08 06/20/18 16:08 Intake and Output: 06/20/18 06/20/18 06:59 18:59 Intake Total 720 Balance 720 - Medications Medications: Current Medications Aspirin (Aspirin Chewable) 81 mg PO DAILY [facility] Last Admin: 06/20/18 09:06 Dose: 81 mg Atorvastatin Calcium (Lipitor) 40 mg PO HS [facility] Last Admin: 06/19/18 21:47 Dose: 40 mg Clopidogrel Bisulfate (Plavix) 75 mg PO DAILY [facility] Last Admin: 06/20/18 09:06 Dose: 75 mg Enoxaparin Sodium (Lovenox) 40 mg SC DAILY [facility]; Protocol Last Admin: 06/20/18 09:05 Dose: 40 mg Sodium Chloride (Sodium Chloride 0.9%) 1,000 mls @ 100 mls/hr IV .Q10H [facility] Last Admin: 06/20/18 02:19 Dose: 100 mls/hr Lisinopril (Zestril) 10 mg PO DAILY [facility] Last Admin: 06/20/18 09:05 Dose: 10 mg - Labs Labs: 06/20/18 07:05 06/20/18 07:05 PT 11.5 SECONDS (9.4-12.5) 06/18/18 23:50 INR 1.04 06/18/18 23:50 APTT 32.5 Seconds (26.9-38.3) 06/18/18 23:50 - Additional Findings Additional findings: - Constitutional Appears: Non-toxic, No Acute Distress Additional comments: lethargic - Head Exam Head Exam: ATRAUMATIC, NORMAL INSPECTION, NORMOCEPHALIC - Eye Exam Eye Exam: EOMI, PERRL Pupil Exam: NORMAL ACCOMODATION right ptosis - ENT Exam ENT Exam: Mucous Membranes Moist, Normal Exam - Neck Exam Neck exam: Positive for: Normal Inspection - Respiratory Exam Respiratory Exam: Clear to Auscultation Bilateral, NORMAL BREATHING PATTERN. absent: Accessory Muscle Use, Chest Wall Tenderness, Decreased Breath Sounds, Rhonchi, Wheezes - Cardiovascular Exam Cardiovascular Exam: REGULAR RHYTHM, +S1, +S2 - GI/Abdominal Exam GI & Abdominal Exam: Normal Bowel Sounds, Soft. absent: Tenderness - Extremities Exam Extremities exam: Positive for: normal inspection, tenderness (right lateral malleolus ), pedal pulses present - Back Exam Back exam: NORMAL INSPECTION - Neurological Exam Neurological exam: Alert, CN II-XII Intact, Oriented x3 Additional comments: muscle strength: 3/5 in RUE and RLE. 5/5 in LUE and LLE facial droop noted in right mouth, right ptosis, forehead spared - Psychiatric Exam Psychiatric exam: Normal Affect, Normal Mood - Skin Skin Exam: Dry, Intact, Normal Color, Warm Assessment and Plan - Assessment and Plan (Free Text) Assessment: Patient is a 32 year old male with a PMH of HTN, HLD, non-compliance, and CVA (residual headache, right eye ptosis, right sided weakness), presenting with dizziness, headache, and right eye vision loss. Plan: Dizziness, Headache, & Right Eye Vision Loss - r/o CVA - CT Head without contrast: No acute findings - ECHO with bubble study: normal LVEF, negative bubble study - CTA head & neck: no acute findings - CXR: no acute findings - Neurology Consulted; Dr. Luo - Continue home ASA - Start Lipitor 40mg PO HS and Plavix 75mg PO QD - EKG: NSR, no ST changes - Vitamin B12, Folate, HgbA1C, Homocysteine levels, Lipid panel, RPR: WNL - UDS: negative - Follow up with Protein C, Protein S, [facility] comprehensive panel, plasminogen, antiphospholipid, lupus anticoag eval, antithrombin III, factor 8, factor 5, cardiolipin AB (IGG, IGM), fibrinogen Right Ankle Pain - Right ankle X-ray: no fractures - PT evaluation Subclinical hypothyroidism - TSH elevated, normal Free T4 - Patient is asymptomatic - Follow up with PMD and repeat labs in 6 weeks Hypertension - Continue home med Lisinopril 10mg PO daily Hyperlipidemia - Continue Lipitor 40mg PO HS PPx - DVT: lovenox 40 SC Disposition: Follow up with neurology and Physical therapy recommendations. Patient seen and case discussed with attending, Dr. Vasile Henderson, PGY-1 <Leydi Burnette - Last Filed: 06/20/18 17:38> Objective - Vital Signs/Intake and Output Vital Signs (last 24 hours): Temp Pulse Resp BP Pulse Ox 98 F 87 20 126/74 97 06/20/18 16:08 06/20/18 16:08 06/20/18 16:08 06/20/18 16:08 06/20/18 16:08 Intake and Output: 06/20/18 06/20/18 06:59 18:59 Intake Total 720 Balance 720 - Medications Medications: Current Medications Aspirin (Aspirin Chewable) 81 mg PO DAILY [facility] Last Admin: 06/20/18 09:06 Dose: 81 mg Atorvastatin Calcium (Lipitor) 40 mg PO HS [facility] Last Admin: 06/19/18 21:47 Dose: 40 mg Clopidogrel Bisulfate (Plavix) 75 mg PO DAILY [facility] Last Admin: 06/20/18 09:06 Dose: 75 mg Enoxaparin Sodium (Lovenox) 40 mg SC DAILY [facility]; Protocol Last Admin: 06/20/18 09:05 Dose: 40 mg Sodium Chloride (Sodium Chloride 0.9%) 1,000 mls @ 100 mls/hr IV .Q10H [facility] Last Admin: 06/20/18 02:19 Dose: 100 mls/hr Lisinopril (Zestril) 10 mg PO DAILY [facility] Last Admin: 06/20/18 09:05 Dose: 10 mg - Labs Labs: 06/20/18 07:05 06/20/18 07:05 PT 11.5 SECONDS (9.4-12.5) 06/18/18 23:50 INR 1.04 06/18/18 23:50 APTT 32.5 Seconds (26.9-38.3) 06/18/18 23:50 Attending/Attestation - Attestation I have personally seen and examined this patient.: Yes I have fully participated in the care of the patient.: Yes I have reviewed all pertinent clinical information, including history, physical exam and plan: Yes Notes (Text): 06/20/18 17:32 32 year old male with past medical history of hypertension, dyslipidemia and CVA who presented with complaint of right sided weakness, vision changes and headache. Admitted to rule out TIA/CVA. CT head, CTA head/neck, and MRI brain are negative for acute findings. Echocardiogram with bubble study was negative. Neurology is following. Patient is on aspirin, plavix and statin. He also reports right ankle pain. Xray was negative for fracture. Patient still complains of weakness. PT is recommended KELLIE vs home with home services. Family and patient at this time don't feel ready going home as he has stairs. Continue with PT. Neurology follow up. Will discuss with CMx/Sw. Leydi Burnette MD Hospitalist.
[2018-06-21 07:46] LABS: BASO # 0.01 K/mm3 (0.0-2.0); BASO % 0.2 % (0.0-3.0); EOS # 0.1 (0.0-0.7); EOS % 2.2 % (1.5-5.0); HEMOGLOBIN 12.5 g/dL (14.0-18.0); LYMPH # 2.5 (1.2-3.4); MEAN CELL VOLUME 91.6 fl (80.0-105.0); MEAN CORPUSCULAR HGB CONC 32.7 g/dl (31.0-37.0); MEAN PLATELET VOLUME 9.1 fl (7.0-11.0); MONO # 0.4 (0.1-0.6); MONO % 5.8 % (1.0-6.0); RBC 4.17 10^6/uL (3.5-6.1); RED CELL DISTRIBUTION WIDTH 12.9 % (11.5-14.5); WHITE BLOOD COUNT 6.3 10^3/uL (4.5-11.0)
[2018-06-21 08:08] LABS: ALB/GLOB RATIO 1.3 (1.1-1.8); ALBUMIN 3.8 g/dL (3.0-4.8); ALT/SGPT 51 U/L (7-56); AST/SGOT 29 U/L (17-59); BLOOD UREA NITROGEN 12 mg/dL (7-21); CALCIUM 8.9 mg/dL (8.4-10.5); GFR NON-AFRICAN AMERICAN > 60
[2018-06-21] MEDS: Sodium Chloride 0.9% 1,000 ML IV SCH ×2 (09:38→17:25)
[2018-06-21] MEDS: Enoxaparin 40 mg Syringe SC SCH (09:38)
--- NOTE | 2018-06-21 12:42 | CP.PCM.PN ---
<Silvio Hernandez - Last Filed: 06/21/18 12:38> Subjective - Date & Time of Evaluation Date of Evaluation: 06/21/18 Time of Evaluation: 09:00 - Subjective Subjective: Silvio Hernandez PGY-1 Progress Note for Hospitalist Service Patient seen and evaluated at bedside. No acute events reported overnight. Patient reports headache but denies R ankle pain, fever, chills, shortness of breath, and blurry vision. Objective - Vital Signs/Intake and Output Vital Signs (last 24 hours): Temp Pulse Resp BP Pulse Ox 97.3 F L 76 18 113/71 99 06/21/18 06:00 06/21/18 10:00 06/21/18 06:00 06/21/18 09:37 06/21/18 06:00 Intake and Output: 06/21/18 06/21/18 06:59 18:59 Intake Total 1440 Output Total 600 Balance 840 - Medications Medications: Current Medications Aspirin (Aspirin Chewable) 81 mg PO DAILY [facility] Last Admin: 06/21/18 09:38 Dose: 81 mg Atorvastatin Calcium (Lipitor) 40 mg PO HS [facility] Last Admin: 06/20/18 21:59 Dose: 40 mg Clopidogrel Bisulfate (Plavix) 75 mg PO DAILY [facility] Last Admin: 06/21/18 09:38 Dose: 75 mg Enoxaparin Sodium (Lovenox) 40 mg SC DAILY [facility]; Protocol Last Admin: 06/21/18 09:38 Dose: 40 mg Sodium Chloride (Sodium Chloride 0.9%) 1,000 mls @ 100 mls/hr IV .Q10H [facility] Last Admin: 06/21/18 09:38 Dose: 100 mls/hr Lisinopril (Zestril) 10 mg PO DAILY [facility] Last Admin: 06/21/18 09:37 Dose: 10 mg - Labs Labs: 06/21/18 06:30 06/21/18 06:30 PT 11.5 SECONDS (9.4-12.5) 06/18/18 23:50 INR 1.04 06/18/18 23:50 APTT 32.5 Seconds (26.9-38.3) 06/18/18 23:50 - Additional Findings Additional findings: - Constitutional Appears: Non-toxic, No Acute Distress Additional comments: lethargic - Head Exam Head Exam: ATRAUMATIC, NORMAL INSPECTION, NORMOCEPHALIC - Eye Exam Eye Exam: EOMI, PERRL Pupil Exam: NORMAL ACCOMODATION right ptosis - ENT Exam ENT Exam: Mucous Membranes Moist, Normal Exam - Neck Exam Neck exam: Positive for: Normal Inspection - Respiratory Exam Respiratory Exam: Clear to Auscultation Bilateral, NORMAL BREATHING PATTERN. absent: Accessory Muscle Use, Chest Wall Tenderness, Decreased Breath Sounds, Rhonchi, Wheezes - Cardiovascular Exam Cardiovascular Exam: REGULAR RHYTHM, +S1, +S2 - GI/Abdominal Exam GI & Abdominal Exam: Normal Bowel Sounds, Soft. absent: Tenderness - Extremities Exam Extremities exam: Positive for: normal inspection, tenderness (right lateral malleolus ), pedal pulses present - Back Exam Back exam: NORMAL INSPECTION - Neurological Exam Neurological exam: Alert, CN II-XII Intact, Oriented x3 Additional comments: muscle strength: 3/5 in RUE and RLE. 5/5 in LUE and LLE facial droop noted in right mouth, right ptosis, forehead spared - Psychiatric Exam Psychiatric exam: Normal Affect, Normal Mood - Skin Skin Exam: Dry, Intact, Normal Color, Warm Assessment and Plan - Assessment and Plan (Free Text) Assessment: Patient is a 32 year old male with a PMH of HTN, HLD, non-compliance, and CVA (residual headache, right eye ptosis, right sided weakness), presenting with dizziness, headache, and right eye vision loss. Plan: Dizziness, Headache, & Transient Right Eye Vision Loss - CT Head without contrast: No acute findings - ECHO with bubble study: normal LVEF, negative bubble study - CTA head & neck: no acute findings - Brain MRI unremarkable - CXR: no acute findings - Neurology Consulted; Dr. Luo - c/w ASA, statin, plavix. Further recs appreciated. - Tylenol 650 mg q6 PRN - C/w Lipitor 40mg PO HS - EKG: NSR, no ST changes - Vitamin B12, Folate, HgbA1C, Homocysteine levels, Lipid panel, RPR: WNL - UDS: negative - Follow up with Protein C, Protein S, VWF comprehensive panel, plasminogen, antiphospholipid, lupus anticoag eval, antithrombin III, factor 8, factor 5, cardiolipin AB (IGG, IGM), fibrinogen Right Ankle Pain - Right ankle X-ray: no fractures - PT evaluation Subclinical hypothyroidism - TSH elevated, normal Free T4 - Patient is asymptomatic - Follow up with PMD and repeat labs in 6 weeks Hypertension - Continue home med Lisinopril 10mg PO daily Hyperlipidemia - Continue Lipitor 40mg PO HS PPx - DVT: lovenox 40 SC - Diet: HHD Disposition: PT recommends KELLIE vs HWS. Will follow up with CM. Patient seen, case reviewed and plan approved by Dr. Burnette. Silvio Hernandez, PGY-1 <Leydi Burnette - Last Filed: 06/21/18 12:56> Objective - Vital Signs/Intake and Output Vital Signs (last 24 hours): Temp Pulse Resp BP Pulse Ox 97.3 F L 76 18 113/71 99 06/21/18 06:00 06/21/18 10:00 06/21/18 06:00 06/21/18 09:37 06/21/18 06:00 Intake and Output: 06/21/18 06/21/18 06:59 18:59 Intake Total 1440 Output Total 600 Balance 840 - Medications Medications: Current Medications Acetaminophen (Tylenol 325mg Tab) 650 mg PO Q6H PRN PRN Reason: Headache Aspirin (Aspirin Chewable) 81 mg PO DAILY [facility] Last Admin: 06/21/18 09:38 Dose: 81 mg Atorvastatin Calcium (Lipitor) 40 mg PO HS [facility] Last Admin: 06/20/18 21:59 Dose: 40 mg Clopidogrel Bisulfate (Plavix) 75 mg PO DAILY [facility] Last Admin: 06/21/18 09:38 Dose: 75 mg Enoxaparin Sodium (Lovenox) 40 mg SC DAILY [facility]; Protocol Last Admin: 06/21/18 09:38 Dose: 40 mg Sodium Chloride (Sodium Chloride 0.9%) 1,000 mls @ 100 mls/hr IV .Q10H [facility] Last Admin: 06/21/18 09:38 Dose: 100 mls/hr Lisinopril (Zestril) 10 mg PO DAILY [facility] Last Admin: 06/21/18 09:37 Dose: 10 mg - Labs Labs: 06/21/18 06:30 06/21/18 06:30 PT 11.5 SECONDS (9.4-12.5) 06/18/18 23:50 INR 1.04 06/18/18 23:50 APTT 32.5 Seconds (26.9-38.3) 06/18/18 23:50 Attending/Attestation - Attestation I have personally seen and examined this patient.: Yes I have fully participated in the care of the patient.: Yes I have reviewed all pertinent clinical information, including history, physical exam and plan: Yes Notes (Text): 06/21/18 12:54 32 year old male with past medical history of hypertension, dyslipidemia and CVA who presented with complaint of right sided weakness, vision changes and headache. Admitted to rule out TIA/CVA. CT head, CTA head/neck, and MRI brain are negative for acute findings. Echocardiogram with bubble study was negative. Patient is on aspirin, plavix and statin. Will follow up with neurology recommendations. He also reported right ankle pain from possible sprain which has improved. Xray was negative for fracture. Patient still complains of weakness. PT is recommended [facility]LLIE vs home with home services. Leydi Burnette MD Hospitalist.
[2018-06-22] MEDS: Enoxaparin 40 mg Syringe SC SCH (09:21)
--- NOTE | 2018-06-22 13:22 | CP.PCM.PN ---
<Silvio Hernandez - Last Filed: 06/22/18 13:19> Subjective - Date & Time of Evaluation Date of Evaluation: 06/22/18 Time of Evaluation: 09:00 - Subjective Subjective: Silvio Hernandez PGY-1 Progress Note for Hospitalist Service Patient seen and evaluated at bedside. No acute events reported overnight. Patient reports headache and vision loss in R eye but denies R ankle pain, fever, chills, shortness of breath. Patient was unable to open R eye and reported weakness of R side. Objective - Vital Signs/Intake and Output Vital Signs (last 24 hours): Temp Pulse Resp BP Pulse Ox 97.6 F 87 18 118/72 96 06/22/18 06:00 06/22/18 09:21 06/22/18 06:00 06/22/18 09:21 06/22/18 06:00 Intake and Output: 06/22/18 06/22/18 06:59 18:59 Intake Total 0 Output Total 100 Balance -100 - Medications Medications: Current Medications Acetaminophen (Tylenol 325mg Tab) 650 mg PO Q6H PRN PRN Reason: Headache Last Admin: 06/21/18 14:21 Dose: 650 mg Aspirin (Aspirin Chewable) 81 mg PO DAILY [facility] Last Admin: 06/22/18 09:21 Dose: 81 mg Atorvastatin Calcium (Lipitor) 40 mg PO HS [facility] Last Admin: 06/21/18 22:55 Dose: 40 mg Clopidogrel Bisulfate (Plavix) 75 mg PO DAILY [facility] Last Admin: 06/22/18 09:21 Dose: 75 mg Enoxaparin Sodium (Lovenox) 40 mg SC DAILY [facility]; Protocol Last Admin: 06/22/18 09:21 Dose: 40 mg Sodium Chloride (Sodium Chloride 0.9%) 1,000 mls @ 100 mls/hr IV .Q10H [facility] Last Admin: 06/21/18 17:25 Dose: Not Given Lisinopril (Zestril) 10 mg PO DAILY [facility] Last Admin: 06/22/18 09:21 Dose: 10 mg - Labs Labs: 06/21/18 06:30 06/21/18 06:30 PT 11.5 SECONDS (9.4-12.5) 06/18/18 23:50 INR 1.04 06/18/18 23:50 APTT 32.5 Seconds (26.9-38.3) 06/18/18 23:50 - Additional Findings Additional findings: - Constitutional Appears: Non-toxic, No Acute Distress Additional comments: lethargic - Head Exam Head Exam: ATRAUMATIC, NORMAL INSPECTION, NORMOCEPHALIC - Eye Exam Eye Exam: EOMI, PERRL Pupil Exam: NORMAL ACCOMODATION right ptosis - ENT Exam ENT Exam: Mucous Membranes Moist, Normal Exam - Neck Exam Neck exam: Positive for: Normal Inspection - Respiratory Exam Respiratory Exam: Clear to Auscultation Bilateral, NORMAL BREATHING PATTERN. absent: Accessory Muscle Use, Chest Wall Tenderness, Decreased Breath Sounds, Rhonchi, Wheezes - Cardiovascular Exam Cardiovascular Exam: REGULAR RHYTHM, +S1, +S2 - GI/Abdominal Exam GI & Abdominal Exam: Normal Bowel Sounds, Soft. absent: Tenderness - Extremities Exam Extremities exam: Positive for: normal inspection, tenderness (right lateral malleolus ), pedal pulses present - Back Exam Back exam: NORMAL INSPECTION - Neurological Exam Neurological exam: Alert, CN II-XII Intact, Oriented x3 Additional comments: Initially: muscle strength: 3/5 in RUE and RLE. 5/5 in LUE and LLE facial droop noted in right mouth, right ptosis, forehead spared. Upon visiting patient a second time, patient presented with both eyes open widely and full range of motion to b/l UE until he saw me, at which point R sided ptosis began. - Psychiatric Exam Psychiatric exam: Normal Affect, Normal Mood - Skin Skin Exam: Dry, Intact, Normal Color, Warm Assessment and Plan - Assessment and Plan (Free Text) Assessment: Patient is a 32 year old male with a PMH of HTN, HLD, non-compliance, and CVA (residual headache, right eye ptosis, right sided weakness), presenting with dizziness, headache, and right eye vision loss. Plan: Dizziness, Headache, & Transient Right Eye Vision Loss r/o CVA - unlikely CVA as physical exam is inconsistent with neurological deficits - CT Head without contrast: No acute findings - ECHO with bubble study: normal LVEF, negative bubble study - CTA head & neck: no acute findings - Brain MRI unremarkable - CXR: no acute findings - Neurology Consulted; Dr. Luo - c/w ASA, statin, plavix. Further recs appreciated. - Tylenol 650 mg q6 PRN - C/w Lipitor 40mg PO HS - EKG: NSR, no ST changes - Vitamin B12, Folate, HgbA1C, Homocysteine levels, Lipid panel, RPR: WNL - UDS: negative - Follow up with Protein C, Protein S, VWF comprehensive panel, plasminogen, antiphospholipid, lupus anticoag eval, antithrombin III, factor 8, factor 5, fibrinogen - Cardiolipin negative Right Ankle Pain - Right ankle X-ray: no fractures - PT evaluation Subclinical hypothyroidism - TSH elevated, normal Free T4 - Patient is asymptomatic - Follow up with PMD and repeat labs in 6 weeks Hypertension - Continue home med Lisinopril 10mg PO daily Hyperlipidemia - Continue Lipitor 40mg PO HS PPx - DVT: lovenox 40 SC - Diet: HHD Disposition: PT recommends KELLIE vs HWS. Will follow up with CM. Patient seen, case reviewed and plan approved by Dr. Burnette. Silvio Hernandez, PGY-1 <Leydi Burnette - Last Filed: 06/22/18 13:46> Objective - Vital Signs/Intake and Output Vital Signs (last 24 hours): Temp Pulse Resp BP Pulse Ox 97.6 F 87 18 118/72 96 06/22/18 06:00 06/22/18 09:21 06/22/18 06:00 06/22/18 09:21 06/22/18 06:00 Intake and Output: 06/22/18 06/22/18 06:59 18:59 Intake Total 0 Output Total 100 Balance -100 - Medications Medications: Current Medications Acetaminophen (Tylenol 325mg Tab) 650 mg PO Q6H PRN PRN Reason: Headache Last Admin: 06/21/18 14:21 Dose: 650 mg Aspirin (Aspirin Chewable) 81 mg PO DAILY [facility] Last Admin: 06/22/18 09:21 Dose: 81 mg Atorvastatin Calcium (Lipitor) 40 mg PO HS [facility] Last Admin: 06/21/18 22:55 Dose: 40 mg Clopidogrel Bisulfate (Plavix) 75 mg PO DAILY [facility] Last Admin: 06/22/18 09:21 Dose: 75 mg Enoxaparin Sodium (Lovenox) 40 mg SC DAILY [facility]; Protocol Last Admin: 06/22/18 09:21 Dose: 40 mg Sodium Chloride (Sodium Chloride 0.9%) 1,000 mls @ 100 mls/hr IV .Q10H [facility] Last Admin: 06/21/18 17:25 Dose: Not Given Lisinopril (Zestril) 10 mg PO DAILY [facility] Last Admin: 06/22/18 09:21 Dose: 10 mg - Labs Labs: 06/21/18 06:30 06/21/18 06:30 PT 11.5 SECONDS (9.4-12.5) 06/18/18 23:50 INR 1.04 06/18/18 23:50 APTT 32.5 Seconds (26.9-38.3) 06/18/18 23:50 Attending/Attestation - Attestation I have personally seen and examined this patient.: Yes I have fully participated in the care of the patient.: Yes I have reviewed all pertinent clinical information, including history, physical exam and plan: Yes Notes (Text): 06/22/18 13:39 32 year old male with past medical history of hypertension, dyslipidemia and CVA who presented with complaint of right sided weakness, vision changes and headache. Family reports he has residual weakness symptoms from his prior st [facility] and were concerned of exacerbation of symptoms. He was admitted to rule out TIA/CVA. CT head, CTA head/neck, and MRI brain were negative for acute findings. Echocardiogram with bubble study was negative. He was seen by neurology. Patient is on aspirin, plavix and statin. He also reported right ankle pain from possible sprain which has improved. Xray was negative for fracture. Patient still complains of weakness. Headache as improved. Visual complaint of chronic per family. He is able to go to bathroom with assistance as per family. PT has been followed and recommended KELLIE vs home with home services. Will request for PT follow up for d/c recommendations and discuss with CMx tomorrow. He will need outpatient PMD, neurology and ophtholomogy follow up upon discharge. Leydi Burnette MD Hospitalist.
[2018-06-22 14:02] VITALS: RESP 20
[2018-06-22] MEDS: Sodium Chloride 0.9% 1,000 ML IV SCH (15:19)
[2018-06-22 21:27] LABS: PLASMINOGEN ACTIVITY 111 % (65-176)
[2018-06-23 07:48] VITALS: O2SAT 95
--- NOTE | 2018-06-23 09:05 | CP.PCM.PN ---
<Michael Henderson - Last Filed: 06/23/18 15:54> Subjective - Date & Time of Evaluation Date of Evaluation: 06/23/18 Time of Evaluation: 09:05 - Subjective Subjective: PGY-1 Medicine progress note for Dr. Lim Patient seen and examined at bedside. No acute events overnight. He denies fevers, chills, shortness of breath, abdominal pain, nausea, vomiting, diarrhea, or urinary symptoms. Objective - Vital Signs/Intake and Output Vital Signs (last 24 hours): Temp Pulse Resp BP Pulse Ox 97.4 F L 58 L 20 128/78 95 06/23/18 07:48 06/23/18 07:48 06/23/18 07:48 06/23/18 07:48 06/23/18 07:48 Intake and Output: 06/23/18 06/23/18 06:59 18:59 Intake Total 0 Output Total 1220 Balance -1220 - Medications Medications: Current Medications Acetaminophen (Tylenol 325mg Tab) 650 mg PO Q6H PRN PRN Reason: Headache Last Admin: 06/22/18 15:18 Dose: 650 mg Aspirin (Aspirin Chewable) 81 mg PO DAILY [facility] Last Admin: 06/22/18 09:21 Dose: 81 mg Atorvastatin Calcium (Lipitor) 40 mg PO HS [facility] Last Admin: 06/22/18 21:43 Dose: 40 mg Clopidogrel Bisulfate (Plavix) 75 mg PO DAILY [facility] Last Admin: 06/22/18 09:21 Dose: 75 mg Enoxaparin Sodium (Lovenox) 40 mg SC DAILY [facility]; Protocol Last Admin: 06/22/18 09:21 Dose: 40 mg Sodium Chloride (Sodium Chloride 0.9%) 1,000 mls @ 100 mls/hr IV .Q10H [facility] Last Admin: 06/22/18 15:19 Dose: 100 mls/hr Lisinopril (Zestril) 10 mg PO DAILY [facility] Last Admin: 06/22/18 09:21 Dose: 10 mg - Labs Labs: 06/21/18 06:30 06/21/18 06:30 PT 11.5 SECONDS (9.4-12.5) 06/18/18 23:50 INR 1.04 06/18/18 23:50 APTT 32.5 Seconds (26.9-38.3) 06/18/18 23:50 - Additional Findings Additional findings: - Constitutional Appears: Non-toxic, No Acute Distress - Head Exam Head Exam: ATRAUMATIC, NORMAL INSPECTION, NORMOCEPHALIC - Eye Exam Eye Exam: EOMI, PERRL Pupil Exam: NORMAL ACCOMODATION - ENT Exam ENT Exam: Mucous Membranes Moist, Normal Exam - Neck Exam Neck exam: Positive for: Normal Inspection - Respiratory Exam Respiratory Exam: Clear to Auscultation Bilateral, NORMAL BREATHING PATTERN. absent: Accessory Muscle Use, Chest Wall Tenderness, Decreased Breath Sounds, Rhonchi, Wheezes - Cardiovascular Exam Cardiovascular Exam: REGULAR RHYTHM, +S1, +S2 - GI/Abdominal Exam GI & Abdominal Exam: Normal Bowel Sounds, Soft. absent: Tenderness - Extremities Exam Extremities exam: Positive for: normal inspection, tenderness (right lateral malleolus ), pedal pulses present - Back Exam Back exam: NORMAL INSPECTION - Neurological Exam Neurological exam: Alert, CN II-XII Intact, Oriented x3 Additional comments: muscle strength: 3/5 in RUE and RLE. 5/5 in LUE and LLE - Psychiatric Exam Psychiatric exam: Normal Affect, Normal Mood - Skin Skin Exam: Dry, Intact, Normal Color, Warm Assessment and Plan - Assessment and Plan (Free Text) Assessment: Patient is a 32 year old male with a PMH of HTN, HLD, non-compliance, and CVA (residual headache, right eye ptosis, right sided weakness), presenting with dizziness, headache, and right eye vision loss. Plan: Dizziness, Headache, & Right Eye Vision Loss - r/o CVA - CT Head without contrast: No acute findings - ECHO with bubble study: normal LVEF, negative bubble study - CTA head & neck: no acute findings - CXR: no acute findings - Neurology Consulted; Dr. Luo - Continue home ASA - Continue Lipitor 40mg PO HS and Plavix 75mg PO QD - EKG: NSR, no ST changes - Vitamin B12, Folate, HgbA1C, Homocysteine levels, Lipid panel, RPR: WNL - UDS: negative - Protein C, Protein S, antithrombin III, Fibrinogen, cardiolipin AB (IGG, IGM), VWF comprehensive panel, plasminogen: WNL - Follow up, antiphospholipid, lupus anticoag eval, , factor 8, factor 5 Malingering - Stroke work up so far negative, patient still complains of neurological symptoms - Patient's medical charts from [place] reviewed and was negative for history of a stroke - Psychiatry consulted, Dr. Abbott Right Ankle Pain - Right ankle X-ray: no fractures - PT evaluation Subclinical hypothyroidism - TSH elevated, normal Free T4 - Patient is asymptomatic - Follow up with PMD and repeat labs in 6 weeks Hypertension - Continue home med Lisinopril 10mg PO daily Hyperlipidemia - Continue Lipitor 40mg PO HS PPx - DVT: lovenox 40 SC Disposition: Follow up with physical therapy recommendations. Patient seen and case discussed with attending, Dr. Lim. Michael Henderson, PGY-1 <Earlene Lim - Last Filed: 06/24/18 08:06> Objective - Vital Signs/Intake and Output Vital Signs (last 24 hours): Temp Pulse Resp BP Pulse Ox 99 F 86 20 126/81 95 06/23/18 16:55 06/23/18 16:55 06/23/18 16:55 06/23/18 16:55 06/23/18 16:55 Intake and Output: 06/24/18 06/24/18 06:59 18:59 Intake Total 1600 Output Total 1700 Balance -100 - Labs Labs: 06/21/18 06:30 06/21/18 06:30 PT 11.5 SECONDS (9.4-12.5) 06/18/18 23:50 INR 1.04 06/18/18 23:50 APTT 32.5 Seconds (26.9-38.3) 06/18/18 23:50 Attending/Attestation - Attestation I have personally seen and examined this patient.: Yes I have fully participated in the care of the patient.: Yes I have reviewed all pertinent clinical information, including history, physical exam and plan: Yes Notes (Text): 06/24/18 08:06 Please see addendum on DC summary on 06/23/18
[2018-06-23] MEDS: Enoxaparin 40 mg Syringe SC SCH (10:34)
[2018-06-23 13:04] LABS: VON WILLERBRAND FACTOR AG 159 % (50-217)
[2018-06-23] MEDS ORDERED: Dexamethasone 20 mg / 5 ml Inj IVP ONE (13:09)
[2018-06-23] MEDS ORDERED: Magnesium Sulfate 2 gm/50 ml 2 GM/50 ML BAG IVPB ONE (13:09)
[2018-06-23] MEDS ORDERED: Valproate 500 MG in Sodium Chloride 0.9% 100 ML IVPB ONE (13:16)
--- NOTE | 2018-06-23 16:49 | CP.PCM.PN ---
<Andrew Rivero - Last Filed: 06/23/18 16:44> Subjective - Date & Time of Evaluation Date of Evaluation: 06/23/18 Time of Evaluation: 16:45 - Subjective Subjective: Neurology progress note (Dr. Olivas) - Mat, PGY -2 Patient seen and examined at bedside. No acute overnight events. Patient still complaining of headache and of R sided weakness. Objective - Vital Signs/Intake and Output Vital Signs (last 24 hours): Temp Pulse Resp BP Pulse Ox 97.4 F L 82 20 128/78 95 06/23/18 07:48 06/23/18 10:34 06/23/18 07:48 06/23/18 10:34 06/23/18 07:48 Intake and Output: 06/23/18 06/23/18 06:59 18:59 Intake Total 0 Output Total 1220 Balance -1220 - Medications Medications: Current Medications Acetaminophen (Tylenol 325mg Tab) 650 mg PO Q6H PRN PRN Reason: Headache Last Admin: 06/22/18 15:18 Dose: 650 mg Aspirin (Aspirin Chewable) 81 mg PO DAILY [facility] Last Admin: 06/23/18 10:34 Dose: 81 mg Atorvastatin Calcium (Lipitor) 40 mg PO HS [facility] Last Admin: 06/22/18 21:43 Dose: 40 mg Clopidogrel Bisulfate (Plavix) 75 mg PO DAILY [facility] Last Admin: 06/23/18 10:34 Dose: 75 mg Divalproex Sodium (Depakote Er(Once Daily)) 500 mg PO DAILY [facility]; Protocol Enoxaparin Sodium (Lovenox) 40 mg SC DAILY [facility]; Protocol Last Admin: 06/23/18 10:34 Dose: 40 mg Sodium Chloride (Sodium Chloride 0.9%) 1,000 mls @ 100 mls/hr IV .Q10H [facility] Last Admin: 06/22/18 15:19 Dose: 100 mls/hr Lisinopril (Zestril) 10 mg PO DAILY [facility] Last Admin: 06/23/18 10:34 Dose: 10 mg - Labs Labs: 06/21/18 06:30 06/21/18 06:30 PT 11.5 SECONDS (9.4-12.5) 06/18/18 23:50 INR 1.04 06/18/18 23:50 APTT 32.5 Seconds (26.9-38.3) 06/18/18 23:50 - Constitutional Appears: Well - Head Exam Head Exam: ATRAUMATIC, NORMAL INSPECTION, NORMOCEPHALIC - Eye Exam Eye Exam: EOMI, Normal appearance, PERRL Pupil Exam: NORMAL ACCOMODATION, PERRL - ENT Exam ENT Exam: Mucous Membranes Moist, Normal Exam - Neck Exam Neck Exam: Full ROM, Normal Inspection. absent: Lymphadenopathy - Respiratory Exam Respiratory Exam: Clear to Ausculation Bilateral, NORMAL BREATHING PATTERN - Cardiovascular Exam Cardiovascular Exam: REGULAR RHYTHM, +S1, +S2. absent: Murmur - GI/Abdominal Exam GI & Abdominal Exam: Soft, Normal Bowel Sounds. absent: Tenderness - Extremities Exam Extremities Exam: Full ROM, Normal Capillary Refill, Normal Inspection. absent: Joint Swelling, Pedal Edema - Back Exam Back Exam: NORMAL INSPECTION - Neurological Exam Neurological Exam: Alert, Awake, CN II-XII Intact, Normal Gait, Oriented x3 - Psychiatric Exam Psychiatric exam: Normal Affect, Normal Mood - Skin Skin Exam: Dry, Intact, Normal Color, Warm - Additional Findings Additional findings: Mental status: The patient is alert, attentive, and oriented. Speech is clear and fluent with g ood repetition, comprehension, and naming. Cranial nerves: CN II - : Intact CN VII: Face is symmetric with normal eye closure and smile. CN VIII: Hearing is normal to rubbing fingers CN IX, X: Palate elevates symmetrically. Phonation is normal. CN XI: Head turning and shoulder shrug are intact CN XII: Tongue is midline with normal movements and no atrophy. Motor: There is no pronator drift of out-stretched arms. Muscle bulk and tone are normal. Muscle strength: noted right sided 4/5 strength, but significant weakness as compared to left Reflexes: 2+ b/l UE and LE Sensory: Light touch, pinprick, position sense, and vibration sense are intact in fingers and toes on left, but diminished on R Coordination: Rapid alternating movements and fine finger movements are intact. There is no dy smetria on [id number] and [id number]. There are no abnormal or extraneous movements. Romberg is absent. Gait/Stance: Posture is normal. Gait is steady with normal steps, base, arm swing, and turning. Heel and toe walking are normal. Tandem gait is normal when the patient closes one of her eyes. Assessment and Plan - Assessment and Plan (Free Text) Assessment: 32 M pertinent MHx of HTN, HLD, non-compliance, "heart attack", and CVA (residual headache, right eye ptosis, and right sided weakness) presented on 06/19/18 with dizziness, headache and right eye vision loss. R vision loss has resolved; R sided weakness is residual and remains. No longer feels dizzy. Head and neck CTA and Head CT are negative for acute process. Chart review of previous visits reveals negative CT Head from those visits as well. MRI head was negative as well. Plan R Sided Weakness - CVA and TIA ruled out, could be likely 2/2 Malingering VS Conversion Disorder - ASA/Plavix/Lipitor - Admit to remote tele - Achieve adequate blood pressure control - PT/OT - Psych consult Acute on Chronic Headache - Decadron 10 + Depakote 500 IV + Mg Sulfate 2 - Maintenance of Depakote ER 500 Daily <Rich Olivas - Last Filed: 06/23/18 18:30> Objective - Vital Signs/Intake and Output Vital Signs (last 24 hours): Temp Pulse Resp BP Pulse Ox 99 F 86 20 126/81 95 06/23/18 16:55 06/23/18 16:55 06/23/18 16:55 06/23/18 16:55 06/23/18 16:55 Intake and Output: 06/23/18 06/23/18 06:59 18:59 Intake Total 0 Output Total 1220 Balance -1220 - Medications Medications: Current Medications Acetaminophen (Tylenol 325mg Tab) 650 mg PO Q6H PRN PRN Reason: Headache Last Admin: 06/22/18 15:18 Dose: 650 mg Aspirin (Aspirin Chewable) 81 mg PO DAILY [facility] Last Admin: 06/23/18 10:34 Dose: 81 mg Atorvastatin Calcium (Lipitor) 40 mg PO HS [facility] Last Admin: 06/22/18 21:43 Dose: 40 mg Clopidogrel Bisulfate (Plavix) 75 mg PO DAILY [facility] Last Admin: 06/23/18 10:34 Dose: 75 mg Divalproex Sodium (Depakote Er(Once Daily)) 500 mg PO DAILY [facility]; Protocol Enoxaparin Sodium (Lovenox) 40 mg SC DAILY [facility]; Protocol Last Admin: 06/23/18 10:34 Dose: 40 mg Sodium Chloride (Sodium Chloride 0.9%) 1,000 mls @ 100 mls/hr IV .Q10H [facility] Last Admin: 06/22/18 15:19 Dose: 100 mls/hr Lisinopril (Zestril) 10 mg PO DAILY [facility] Last Admin: 06/23/18 10:34 Dose: 10 mg - Labs Labs: 06/21/18 06:30 06/21/18 06:30 PT 11.5 SECONDS (9.4-12.5) 06/18/18 23:50 INR 1.04 06/18/18 23:50 APTT 32.5 Seconds (26.9-38.3) 06/18/18 23:50 Attending/Attestation - Attestation I have personally seen and examined this patient.: Yes I have fully participated in the care of the patient.: Yes I have reviewed all pertinent clinical information, including history, physical exam and plan: Yes Notes (Text): I agree with the assessment and plan. Weakness cannot be explained by neuroimaging since the patient DOES NOT have a stroke on MRI brain. Conversion disorder or secondary gain is possible. He complains of headache still. Hemiplegic migriane is possible. This will be treated as outlined above. 06/23/18 18:28
[2018-06-23 16:56] VITALS: BP 126/81; PULSE 86; TEMP 99
--- NOTE | 2018-06-23 19:24 | CP.PCM.DIS ---
<Michael Henderson - Last Filed: 06/23/18 19:29> Provider - Provider Date of Admission: 06/19/18 01:46 Attending physician: Earlene Lim MD Primary care physician: Kimberly Camara MD Consults: 06/19/18 06:00 Physician Consult ROUTINE AM Comment: Consulting Provider: Carlos Luo Consulting Physician: Carlos Luo Reason for Consult: possible TIA 06/19/18 07:39 Stroke Center Referral Routine Comment: Physician Instructions: Reason For Exam: Code Stroke 06/23/18 11:42 Psychiatry Consult Routine Comment: Consulting Provider: Milena Antunez Consulting Physician: Milena Antunez Reason for Consult: malingering Time Spent in preparation of Discharge (in minutes): 45 Diagnosis - Discharge Diagnosis (1) Right sided weakness Status: Acute (2) Right-sided visual neglect Status: Acute (3) Obesity Status: Chronic (4) Right ankle pain Status: Chronic (5) Subclinical hypothyroidism Status: Chronic (6) HTN (hypertension) Status: Chronic (7) Hyperlipidemia Status: Chronic Hospital Course - Lab Results Lab Results: Most Recent Lab Values WBC 6.3 10^3/uL (4.5-11.0) 06/21/18 06:30 RBC 4.17 10^6/uL (3.5-6.1) 06/21/18 06:30 Hgb 12.5 g/dL (14.0-18.0) L 06/21/18 06:30 Hct 38.2 % (42.0-52.0) L 06/21/18 06:30 MCV 91.6 fl (80.0-105.0) 06/21/18 06:30 MCH 30.0 pg (25.0-35.0) 06/21/18 06:30 MCHC 32.7 g/dl (31.0-37.0) 06/21/18 06:30 RDW 12.9 % (11.5-14.5) 06/21/18 06:30 Plt Count 297 10^3/uL (120.0-450.0) 06/21/18 06:30 MPV 9.1 fl (7.0-11.0) 06/21/18 06:30 Neut % (Auto) 52.8 % (50.0-68.0) 06/21/18 06:30 Lymph % (Auto) 39.0 % (22.0-35.0) H 06/21/18 06:30 Sutter % (Auto) 5.8 % (1.0-6.0) 06/21/18 06:30 Eos % (Auto) 2.2 % (1.5-5.0) 06/21/18 06:30 Baso % (Auto) 0.2 % (0.0-3.0) 06/21/18 06:30 Lymph # (Auto) 2.5 (1.2-3.4) 06/21/18 06:30 Sutter # (Auto) 0.4 (0.1-0.6) 06/21/18 06:30 Eos # (Auto) 0.1 (0.0-0.7) 06/21/18 06:30 Baso # (Auto) 0.01 K/mm3 (0.0-2.0) 06/21/18 06:30 Absolute Neuts (auto) 3.34 (1.4-6.5) 06/21/18 06:30 ESR 20 mm/hr (0.0-15.0) H 06/19/18 05:30 PT 11.5 SECONDS (9.4-12.5) 06/18/18 23:50 INR 1.04 06/18/18 23:50 APTT 32.5 Seconds (26.9-38.3) 06/18/18 23:50 Fibrinogen 356 mg/dl (200-400) 06/19/18 05:30 D-Dimer, Quantitative 215 ng/mlDDU (0-243) 06/19/18 03:00 Plasminogen Activity 111 % (65-176) 06/19/18 05:00 Protein C Activity 119 % (70-180) 06/19/18 05:00 Protein S Activity 79 % (70-150) 06/19/18 05:00 Antithrombin III Activ 103 % activity (80-120) 06/19/18 05:00 von Willebrand Antigen 159 % (50-217) 06/19/18 05:00 Sodium 140 mmol/L (132-148) 06/21/18 06:30 Potassium 4.0 mmol/L (3.6-5.0) 06/21/18 06:30 Chloride 107 mmol/L (98-107) 06/21/18 06:30 Carbon Dioxide 24 mmol/L (21-33) 06/21/18 06:30 Anion Gap 13 (10-20) 06/21/18 06:30 BUN 12 mg/dL (7-21) 06/21/18 06:30 Creatinine 0.8 mg/dl (0.8-1.5) 06/21/18 06:30 Est GFR ( Amer) > 60 06/21/18 06:30 Est GFR (Non-Af Amer) > 60 06/21/18 06:30 Random Glucose 92 mg/dL (70-110) 06/21/18 06:30 Hemoglobin A1c 6.3 % (4.2-6.5) 06/19/18 05:30 Calcium 8.9 mg/dL (8.4-10.5) 06/21/18 06:30 Phosphorus 4.6 mg/dL (2.5-4.5) H 06/19/18 05:30 Magnesium 2.1 mg/dL (1.7-2.2) 06/21/18 06:30 Total Bilirubin 0.3 mg/dL (0.2-1.3) 06/21/18 06:30 AST 29 U/L (17-59) 06/21/18 06:30 ALT 51 U/L (7-56) 06/21/18 06:30 Alkaline Phosphatase 51 U/L (38-126) 06/21/18 06:30 Troponin I < 0.01 ng/mL 06/19/18 12:00 NT-Pro-B Natriuret Pep < 11.1 pg/mL (0-450) 06/18/18 23:50 Total Protein 6.8 g/dL (5.8-8.3) 06/21/18 06:30 Albumin 3.8 g/dL (3.0-4.8) 06/21/18 06:30 Globulin 3.0 gm/dL 06/21/18 06:30 Albumin/Globulin Ratio 1.3 (1.1-1.8) 06/21/18 06:30 Triglycerides 168 mg/dL (35-160) H 06/19/18 05:30 Cholesterol 152 mg/dL (130-200) 06/19/18 05:30 LDL Cholesterol Direct 98 mg/dL (0-129) 06/19/18 05:30 HDL Cholesterol 29 mg/dL (29-60) 06/19/18 05:30 Vitamin B12 334 pg/mL (239-931) 06/19/18 05:30 Folate 9.4 ng/mL 06/19/18 05:30 Homocysteine 8.6 umol/L (6.6-14.8) 06/19/18 05:30 Free T4 0.88 ng/dL (0.78-2.19) 06/19/18 05:30 TSH 3rd Generation 6.75 mIU/mL (0.46-4.68) H 06/19/18 05:30 Urine Color Yellow (YELLOW) 06/19/18 01:41 Urine Appearance Clear (CLEAR) 06/19/18 01:41 Urine pH 6.0 (4.7-8.0) 06/19/18 01:41 Ur Specific [place] >= 1.030 (1.005-1.035) 06/19/18 01:41 Urine Protein Trace mg/dL (<30 mg/dL) H 06/19/18 01:41 Urine Glucose (UA) Negative mg/dL (NEGATIVE) 06/19/18 01:41 Urine Ketones Negative mg/dL (NEGATIVE) 06/19/18 01:41 Urine Blood Negative (NEGATIVE) 06/19/18 01:41 Urine Nitrate Negative (NEGATIVE) 06/19/18 01:41 Urine Bilirubin Negative (NEGATIVE) 06/19/18 01:41 Urine Urobilinogen 0.2 E.U./dL (<1 E.U./dL) 06/19/18 01:41 Ur Leukocyte Esterase Negative Marissa/uL (NEGATIVE) 06/19/18 01:41 Urine RBC 0 - 2 /hpf (0-2) 06/19/18 01:41 Urine WBC 0 - 2 /hpf (0-6) 06/19/18 01:41 Ur Epithelial Cells 0 - 2 /hpf (0-5) 06/19/18 01:41 Urine Opiates Screen Negative (NEGATIVE) 06/19/18 01:41 Urine Methadone Screen Negative (NEGATIVE) 06/19/18 01:41 Ur Barbiturates Screen Negative (NEGATIVE) 06/19/18 01:41 Ur Phencyclidine Scrn Negative (NEGATIVE) 06/19/18 01:41 Ur Amphetamines Screen Negative (NEGATIVE) 06/19/18 01:41 U Benzodiazepines Scrn Negative (NEGATIVE) 06/19/18 01:41 U Oth Cocaine Metabols Negative (NEGATIVE) 06/19/18 01:41 U Cannabinoids Screen Negative (NEGATIVE) 06/19/18 01:41 Anti-Cardiolipin IgG Ab <14 GPL (<=14) 06/19/18 05:00 Anti-Cardiolipin IgA Ab <11 APL (<=11) 06/19/18 05:00 Anti-Cardiolipin IgM Ab <12 MPL (<=12) 06/19/18 05:00 RPR Nonreactive (NONREACTIVE) 06/19/18 05:30 - Hospital Course Hospital Course: This is a 32-year-old M from [place] with PMH of HTN, HLD, non-compliance, "heart attack", and CVA (residual headache, right eye ptosis, and right sided weakness) who presents to [facility] with a chief complaints of dizziness, headache and right eye vision loss. Patient reports he has been experiencing headaches every other day since having a stroke in [place] in 2018. A code stroke was called in the ED with a NIHSS score of 1. Over the course of his hospital stay, Brain MRI, CT Head without contrast, CTA head and neck were done and showed no acute findings. Echocardiogram with bubble study showed normal LVEF and negative bubble study. CXR and EKG showed no acute findings. Neurology (Dr. Luo/Brendon) and Psychiatry (Dr. Abbott) were consulted. Neurology states that patient did not have a stroke based on imaging studies. Patient was recommended to start Plavix and Depakote. Psychiatry was consulted for possible secondary gains as patient's physical exam was inconsistent and patient still complains of neurological symptoms despite the negative work up. Patient's medical charts from [place] were reviewed and showed that patient has never had a stroke in the past. Physical therapy recommended patient to go to subacute rehab. Patient was accepted to [facility] for further conditioning. Upon discharge, patient was instructed to continue to take Aspirin, plavix, depakote, lipitor, and norvasc. He was instructed to follow up with a primary care doctor and follow up at neurology clinic once discharged from subacute rehab. Patient was instructed to return to the nearest emergency room for worsening or newly concerning symptoms. Patient is medically optimized for discharge to subacute rehab. Discharge Exam - Additional Findings Additional findings: - Constitutional Appears: Non-toxic, No Acute Distress - Head Exam Head Exam: ATRAUMATIC, NORMAL INSPECTION, NORMOCEPHALIC - Eye Exam Eye Exam: EOMI, PERRL Pupil Exam: NORMAL ACCOMODATION - ENT Exam ENT Exam: Mucous Membranes Moist, Normal Exam - Neck Exam Neck exam: Positive for: Normal Inspection - Respiratory Exam Respiratory Exam: Clear to Auscultation Bilateral, NORMAL BREATHING PATTERN. absent: Accessory Muscle Use, Chest Wall Tenderness, Decreased Breath Sounds, Rhonchi, Wheezes - Cardiovascular Exam Cardiovascular Exam: REGULAR RHYTHM, +S1, +S2 - GI/Abdominal Exam GI & Abdominal Exam: Normal Bowel Sounds, Soft. absent: Tenderness - Extremities Exam Extremities exam: Positive for: normal inspection, tenderness (right lateral malleolus ), pedal pulses present - Back Exam Back exam: NORMAL INSPECTION - Neurological Exam Neurological exam: Alert, CN II-XII Intact, Oriented x3 Additional comments: muscle strength: 3/5 in RUE and RLE. 5/5 in LUE and LLE - Psychiatric Exam Psychiatric exam: Normal Affect, Normal Mood - Skin Skin Exam: Dry, Intact, Normal Color, Warm Discharge Plan - Follow Up Plan Condition: GOOD Disposition: TRANSF TO SNF Instructions: High Blood Pressure (DC), Stroke (DC), Generalized Weakness (DC) Additional Instructions: - Start Plavix 75mg daily and Depakote ER 500mg daily - Continue taking Aspirin 81mg daily - Your Lipitor dose has been increased to 40mg daily - Resume all other home medications as prescribed by your doctor - Follow up with primary care doctor, within 1 week - FOllow up with Neurologist, Dr. Olivas in his office in 2-4 weeks - Follow up out patient for repeat TSH and thyroid blood work in 6 weeks - Follow up with eye doctor - Continue to work with physical therapy - Return to the nearest emergency room for worsening or newly concerning symptoms - Inicie Plavix 75 mg al da y Depakote ER 500 mg al da - Continuar tomando aspirina 81mg diariamente - Rodriguez dosis de Lipitor salas aumentado a 40 mg al da. - Reanude todos los dems medicamentos caseros segn lo prescrito por rodriguez mdico. - Seguimiento con el mdico de atencin primaria, dentro de 1 semana. - Comience con un neurlogo, el Dr. Olivas en rodriguez oficina en 2 a 4 semanas - Seguimiento al paciente para repetir el anlisis de TSH y el anlisis de mary de la tiroides en 6 semanas. - Seguimiento con oculista. - Continuar trabajando con fisioterapia. - Regrese a la adam de emergencias ms cercana por empeoramiento o sntomas nuevos. Referrals: Kimberly Camara MD [Primary Care Provider] - Rich Olivas MD [Staff Provider] - <Earlene Lim - Last Filed: 06/24/18 08:05> Provider - Provider Date of Admission: 06/19/18 01:46 Attending physician: Earlene Lim MD Primary care physician: Kimberly Camara MD Consults: 06/19/18 06:00 Physician Consult ROUTINE AM Comment: Consulting Provider: Carlos Luo Consulting Physician: Carlos Luo Reason for Consult: possible TIA 06/19/18 07:39 Stroke Center Referral Routine Comment: Physician Instructions: Reason For Exam: Code Stroke 06/23/18 11:42 Psychiatry Consult Routine Comment: Consulting Provider: Milena Antunez Consulting Physician: Milena Antunez Reason for Consult: malingering Hospital Course - Lab Results Lab Results: Most Recent Lab Values WBC 6.3 10^3/uL (4.5-11.0) 06/21/18 06:30 RBC 4.17 10^6/uL (3.5-6.1) 06/21/18 06:30 Hgb 12.5 g/dL (14.0-18.0) L 06/21/18 06:30 Hct 38.2 % (42.0-52.0) L 06/21/18 06:30 MCV 91.6 fl (80.0-105.0) 06/21/18 06:30 MCH 30.0 pg (25.0-35.0) 06/21/18 06:30 MCHC 32.7 g/dl (31.0-37.0) 06/21/18 06:30 RDW 12.9 % (11.5-14.5) 06/21/18 06:30 Plt Count 297 10^3/uL (120.0-450.0) 06/21/18 06:30 MPV 9.1 fl (7.0-11.0) 06/21/18 06:30 Neut % (Auto) 52.8 % (50.0-68.0) 06/21/18 06:30 Lymph % (Auto) 39.0 % (22.0-35.0) H 06/21/18 06:30 Sutter % (Auto) 5.8 % (1.0-6.0) 06/21/18 06:30 Eos % (Auto) 2.2 % (1.5-5.0) 06/21/18 06:30 Baso % (Auto) 0.2 % (0.0-3.0) 06/21/18 06:30 Lymph # (Auto) 2.5 (1.2-3.4) 06/21/18 06:30 Sutter # (Auto) 0.4 (0.1-0.6) 06/21/18 06:30 Eos # (Auto) 0.1 (0.0-0.7) 06/21/18 06:30 Baso # (Auto) 0.01 K/mm3 (0.0-2.0) 06/21/18 06:30 Absolute Neuts (auto) 3.34 (1.4-6.5) 06/21/18 06:30 ESR 20 mm/hr (0.0-15.0) H 06/19/18 05:30 PT 11.5 SECONDS (9.4-12.5) 06/18/18 23:50 INR 1.04 06/18/18 23:50 APTT 32.5 Seconds (26.9-38.3) 06/18/18 23:50 Fibrinogen 356 mg/dl (200-400) 06/19/18 05:30 D-Dimer, Quantitative 215 ng/mlDDU (0-243) 06/19/18 03:00 Plasminogen Activity 111 % (65-176) 06/19/18 05:00 Lupus Anticoagulant see note 06/19/18 05:00 Protein C Activity 119 % (70-180) 06/19/18 05:00 Protein S Activity 79 % (70-150) 06/19/18 05:00 Antithrombin III Activ 103 % activity (80-120) 06/19/18 05:00 Factor V Activity 88 % (65-150) 06/19/18 05:30 von Willebrand Antigen 159 % (50-217) 06/19/18 05:00 Sodium 140 mmol/L (132-148) 06/21/18 06:30 Potassium 4.0 mmol/L (3.6-5.0) 06/21/18 06:30 Chloride 107 mmol/L (98-107) 06/21/18 06:30 Carbon Dioxide 24 mmol/L (21-33) 06/21/18 06:30 Anion Gap 13 (10-20) 06/21/18 06:30 BUN 12 mg/dL (7-21) 06/21/18 06:30 Creatinine 0.8 mg/dl (0.8-1.5) 06/21/18 06:30 Est GFR ( Amer) > 60 06/21/18 06:30 Est GFR (Non-Af Amer) > 60 06/21/18 06:30 Random Glucose 92 mg/dL (70-110) 06/21/18 06:30 Hemoglobin A1c 6.3 % (4.2-6.5) 06/19/18 05:30 Calcium 8.9 mg/dL (8.4-10.5) 06/21/18 06:30 Phosphorus 4.6 mg/dL (2.5-4.5) H 06/19/18 05:30 Magnesium 2.1 mg/dL (1.7-2.2) 06/21/18 06:30 Total Bilirubin 0.3 mg/dL (0.2-1.3) 06/21/18 06:30 AST 29 U/L (17-59) 06/21/18 06:30 ALT 51 U/L (7-56) 06/21/18 06:30 Alkaline Phosphatase 51 U/L (38-126) 06/21/18 06:30 Troponin I < 0.01 ng/mL 06/19/18 12:00 NT-Pro-B Natriuret Pep < 11.1 pg/mL (0-450) 06/18/18 23:50 Total Protein 6.8 g/dL (5.8-8.3) 06/21/18 06:30 Albumin 3.8 g/dL (3.0-4.8) 06/21/18 06:30 Globulin 3.0 gm/dL 06/21/18 06:30 Albumin/Globulin Ratio 1.3 (1.1-1.8) 06/21/18 06:30 Triglycerides 168 mg/dL (35-160) H 06/19/18 05:30 Cholesterol 152 mg/dL (130-200) 06/19/18 05:30 LDL Cholesterol Direct 98 mg/dL (0-129) 06/19/18 05:30 HDL Cholesterol 29 mg/dL (29-60) 06/19/18 05:30 Vitamin B12 334 pg/mL (239-931) 06/19/18 05:30 Folate 9.4 ng/mL 06/19/18 05:30 Homocysteine 8.6 umol/L (6.6-14.8) 06/19/18 05:30 Free T4 0.88 ng/dL (0.78-2.19) 06/19/18 05:30 TSH 3rd Generation 6.75 mIU/mL (0.46-4.68) H 06/19/18 05:30 Urine Color Yellow (YELLOW) 06/19/18 01:41 Urine Appearance Clear (CLEAR) 06/19/18 01:41 Urine pH 6.0 (4.7-8.0) 06/19/18 01:41 Ur Specific [place] >= 1.030 (1.005-1.035) 06/19/18 01:41 Urine Protein Trace mg/dL (<30 mg/dL) H 06/19/18 01:41 Urine Glucose (UA) Negative mg/dL (NEGATIVE) 06/19/18 01:41 Urine Ketones Negative mg/dL (NEGATIVE) 06/19/18 01:41 Urine Blood Negative (NEGATIVE) 06/19/18 01:41 Urine Nitrate Negative (NEGATIVE) 06/19/18 01:41 Urine Bilirubin Negative (NEGATIVE) 06/19/18 01:41 Urine Urobilinogen 0.2 E.U./dL (<1 E.U./dL) 06/19/18 01:41 Ur Leukocyte Esterase Negative Marissa/uL (NEGATIVE) 06/19/18 01:41 Urine RBC 0 - 2 /hpf (0-2) 06/19/18 01:41 Urine WBC 0 - 2 /hpf (0-6) 06/19/18 01:41 Ur Epithelial Cells 0 - 2 /hpf (0-5) 06/19/18 01:41 Urine Opiates Screen Negative (NEGATIVE) 06/19/18 01:41 Urine Methadone Screen Negative (NEGATIVE) 06/19/18 01:41 Ur Barbiturates Screen Negative (NEGATIVE) 06/19/18 01:41 Ur Phencyclidine Scrn Negative (NEGATIVE) 06/19/18 01:41 Ur Amphetamines Screen Negative (NEGATIVE) 06/19/18 01:41 U Benzodiazepines Scrn Negative (NEGATIVE) 06/19/18 01:41 U Oth Cocaine Metabols Negative (NEGATIVE) 06/19/18 01:41 U Cannabinoids Screen Negative (NEGATIVE) 06/19/18 01:41 Anti-Cardiolipin IgG Ab <14 GPL (<=14) 06/19/18 05:00 Anti-Cardiolipin IgA Ab <11 APL (<=11) 06/19/18 05:00 Anti-Cardiolipin IgM Ab <12 MPL (<=12) 06/19/18 05:00 RPR Nonreactive (NONREACTIVE) 06/19/18 05:30 Attending/Attestation - Attestation I have personally seen and examined this patient.: Yes I have fully participated in the care of the patient.: Yes I have reviewed all pertinent clinical information, including history, physical exam and plan: Yes Notes (Text): 06/24/18 08:01 Medical record note made by the resident after discussion with my direction and input after the patient was personally seen and examined by me. I have reviewed the chart and agree that the record accurately reflects by personal performance of the history, physical exam, data review, and medical decision-making, in the course for the patient. I have also personally directed the plan of care. 32 year old male with PMH of hypertension, dyslipidemia and CVA ? (Medical record from [place] did not reveal any evidence of stroke)who presented with complaint of right sided weakness, vision changes and headache. Family reports he has residual weakness symptoms from his prior stroke and were concerned of exacerbation of symptoms. He was admitted to rule out TIA/CVA. CT head, CTA head/neck, and MRI brain were negative for acute findings. Echocardiogram with bubble study was negative. He also reported right ankle pain from possible sprain which has improved. Xray was negative for fracture. Patient was also treated for hemiplegic migrain. His headache is better.He has been started on Depakote. He was evaluated by Neurology and Psychiatry for possible conversion disorder. Patient was evaluated by PT and KELLIE was recommended.He will be discharged to [facility]. Management plan was discussed in detail with patient and family. Education was provided.
--- NOTE | 2018-06-23 21:53 | CON ---
DATE OF CONSULTATION: 06/23/2018 HISTORY OF PRESENT ILLNESS: In short, the patient is a 32-year-old male. The patient was admitted on the medical side for evaluation of right-sided weakness. The patient has multiple medical issues including hypertension, CVA and TIAs. Psych consult was called for evaluation of possible malingering. The patient was seen and examined today. The patient presented to be alert, acceptable personal hygiene. The patient is morbidly obese. The patient reported that he came to the hospital for right-sided weakness including face, arm as well as leg. Reported that he also has headache and right eye vision loss as well as dizziness. The patient reported that at present moment he feels the same way. The patient has some facial asymmetry. The patient said that he does not feel depressed or hopeless. The patient does not feel that he wants to hurt himself or others. The patient reported that he has a lot of social issues including possible eviction by the end of this month. The patient denied being stressed out and the patient expressed no concerns about his social issues and correlation between social issues and current symptoms and presentation. The patient reported that he had similar symptoms back in [place] in 06/2017. By 12/2017, the patient was able to take care of himself, but still has residual symptoms of the right side weakness. The patient denied hearing voices, denied seeing things, denied paranoid ideation. The patient denied any thoughts of harming himself or others, denied intent or plan. The patient denied that he has history of mental illness. The patient denied he ever being evaluated by psychiatrist. The patient also denied history of suicidal attempt and denied any suicidal ideation at the moment of the interview. VITAL SIGNS: Reviewed. Temperature 97.4, pulse is 82, blood pressure 128/78, respirations 20, and oxygen saturation is 95. MEDICATIONS: Reviewed. Tylenol, aspirin, Lipitor, Plavix, Depakote 500 mg daily, Lovenox, Zestril, sodium chloride. LABS: Reviewed. Most recent was from 06/21/2018. Toxicology reviewed and negative for any substances. The patient denied any history of substance abuse, denied smoking, denies alcohol consumption. MENTAL STATUS EXAMINATION: The patient appears to be alert. There is some right-sided facial symmetry. The patient was not moving his arm or leg during the interview. Intermittent eye contact. Speech was normal rate, tone, quality and quantity. The patient is Vietnamese-speaking and this production underwriter utilized a Vietnamese-speaking nurse for translation. Mood described as okay. Affect was constricted. Thought Process: Coherent and goal-directed. Thought Content: The patient denied visual, auditory or tactile hallucinations. Denied paranoid ideation. The patient denied thoughts of harming himself or others, denied intent or plan. Insight and judgment seems to be fair. Impulses are well controlled. IMPRESSION: On the question which medical team is rising about malingering, this production underwriter doubts malingering when the patients are looking for secondary gain. The patient does not appear to be looking for a secondary gain here. Moreover, this production underwriter spoke to physical therapy and the patient obviously had some physical deficit when he walked. At the same time, it is very unusual for any stroke or TIA to have complete right side paralysis, or numbness or weakness. Cultural syndrome needs to be excluded. Conversion disorder needs to be excluded, but it is doubtful. PLAN: The patient poses no imminent danger to self or others. The patient is willing to participate in physical therapy and agreed to go to subacute rehab. [employer] Worker need to be involved. This production underwriter will sign off from this case. Should you have any questions, give me a call back. Thank you very much for letting me participate in the care of your patient. Milena Antunez MD
[2018-06-24] MEDS ORDERED: Divalproex 500 mg ER (ONCE DAILY formulation) PO SCH (10:00)
== END 2018-06-23 21:30 | DRG 891 ==
LOC: ED 23:04 → ERH 06-19 01:46 → 3RNO 06-19 02:34
PROVIDERS: ADMIT Internal Medicine; ATTEND Internal Medicine
DX: G43.409 Hemiplegic migraine, not intractable, without status migrainosus (principal); F44.9 Dissociative and conversion disorder, unspecified; Z76.5 Malingerer [conscious simulation]; H02.401 Unspecified ptosis of right eyelid; H54.61 Unqualified visual loss, right eye, normal vision left eye; E03.9 Hypothyroidism, unspecified; M25.571 Pain in right ankle and joints of right foot; E78.5 Hyperlipidemia, unspecified; I10 Essential (primary) hypertension; E66.01 Morbid (severe) obesity due to excess calories; Z68.42 Body mass index [BMI] 45.0-49.9, adult; Z79.82 Long term (current) use of aspirin; Z91.14 Patient's other noncompliance with medication regimen; Z91.19 Patient's noncompliance with other medical treatment and regimen; Z86.73 Personal history of transient ischemic attack (TIA), and cerebral infarction without residual deficits; I25.2 Old myocardial infarction